=== PATIENT | male | born 1960 | race Caucasian/White ===

== ENCOUNTER 2017-04-10 22:10 | Inpatient (IN) | payer MEDICARE, MEDICAID ==
--- NOTE | 2017-04-11 00:11 | ER Document Report ---
ED Fall - General Mode of Arrival: Medic Information source: Patient TRAVEL OUTSIDE OF THE [place] IN LAST 30 DAYS: No - HPI Patient complains to provider of: Fall Occurred: This evening Where: Home Context: Lost balance, Fell from standing Associated symptoms: Dazed/confused, Difficulty walking Location of injury/pain: Neck Prehospital interventions: C-collar <DOTTIE RODRIGUEZ - Last Filed: 04/11/17 05:45> <ASHLEY HATHAWAY - Last Filed: 04/11/17 06:47> - General Chief Complaint: Fall Stated Complaint: DIZZINESS Time Seen by Provider: 04/10/17 23:57 Notes: 56 year old male with history of hepatitis C, insulin dependent diabetes mellitus and hypertension presents to the ED via EMS after suffering a fall early this evening. Patient states that he got up to walk from his couch to the kitchen when he suddenly felt dizzy and lost his balance. Patient fell to the ground but is unsure if he hit his head. Patient is complaining of neck pain and states that he "can't think right." Patient explains that he has been experiencing dizziness and loss of balance for the past week that got worse today with the fall. Patient is currently taking Bactrim secondary to multiple leg sores. EMS reports patient's dizziness is exacerbated with ambulation, fever of 101.1F , with a heart rate of 120. (DOTTIE RODRIGUEZ) - Related data Allergies/Adverse Reactions: No Known Allergies Allergy (Unverified 02/18/12 20:40) Past Medical History - General Information source: Patient - Social History Smoking Status: Current Every Day Smoker Frequency of alcohol use: Social Drug Abuse: None Family History: Reviewed & Not Pertinent - Past Medical History Cardiac Medical History: Reports: Hx Hypertension Denies: Hx Hypercholesterolemia Endocrine Medical History: Reports: Hx Diabetes Mellitus Type 2 - insulin dependent Renal/ Medical History: Reports: Hx Kidney Stones Musculoskeltal Medical History: Reports Hx Arthritis Infectious Medical History: Reports: Hx Hepatitis - C Past Surgical History: Reports: Hx Abdominal Surgery - lap band, Hx Gastric Bypass Surgery - lap band, Hx Orthopedic Surgery - knee, hip - Immunizations Hx Diphtheria, Pertussis, Tetanus Vaccination: Yes <DOTTIE RODRIGUEZ - Last Filed: 04/11/17 05:45> - Social History Cigarette use (# per day): Yes Chew tobacco use (# tins/day): No Smoking Education Provided: No Occupation: Interneer Lives with: Family Past Surgical History: Reports: Hx Orthopedic Surgery - knee, R hip replacement <ASHLEY HATHAWAY - Last Filed: 04/11/17 06:47> Review of Systems - Review of Systems Constitutional: No symptoms reported EENT: No symptoms reported Cardiovascular: See HPI, Dizziness Respiratory: No symptoms reported Gastrointestinal: No symptoms reported Genitourinary: No symptoms reported Male Genitourinary: No symptoms reported Musculoskeletal: See HPI, Neck pain Skin: No symptoms reported Hematologic/Lymphatic: No symptoms reported Neurological/Psychological: See HPI, Other - loss of balance -: Yes All other systems reviewed and negative <DOTTIE RODRIGUEZ - Last Filed: 04/11/17 05:45> Physical Exam - Vital signs Interpretation: Tachycardic, Febrile - General General appearance: Alert In distress: None - HEENT Head: Normocephalic, Atraumatic Eyes: Other - lateral gaze nystagmus. No: Normal Extraocular movements intact: Yes Pupils: PERRL Neck: Other - C-collar in place - Respiratory Respiratory status: No respiratory distress Breath sounds: Normal - Cardiovascular Rhythm: Regular, Tachycardia Heart sounds: Normal auscultation - Abdominal Inspection: Obese Distension: No distension Tenderness: Nontender - Back Back: Normal - Extremities General upper extremity: Normal inspection, Normal ROM General lower extremity: Normal inspection, Normal ROM - Neurological Neuro grossly intact: Yes Cognition: Confused - Psychological Associated symptoms: Normal affect, Normal mood - Skin Skin Temperature: Warm Skin Moisture: Dry Skin Color: Normal <DOTTIE RODRIGUEZ - Last Filed: 04/11/17 05:45> Course - Laboratory Result Diagrams: 04/11/17 00:12 04/11/17 00:12 <DOTTIE RODRIGUEZ - Last Filed: 04/11/17 05:45> - Laboratory Result Diagrams: 04/11/17 00:12 04/11/17 00:12 - Diagnostic Test Radiology reviewed: Image reviewed, Reports reviewed - CT scan of the brain shows chronic microvascular ischemic changes and atrophy with nothing acute. CT scan of the neck shows chronic arthritic changes with nothing acute. - Consults Dr. Logan Time consulted: 06:40 Consulted provider: will come to ER <ASHLEY HATHAWAY - Last Filed: 04/11/17 06:47> - Re-evaluation Re-evalutation: 04/11/17 05:39 The patient was given 50 mg of Antivert p.o. He also received 1 L of normal saline. He then slept for about 2 hours. On waking the patient, he states he thinks he feels somewhat better, he was allowed to stand up to see how his off- balance sensation was, and he almost fell forward. Give additional IV fluids and order an MRI of the brain for the morning. (ASHLEY HATHAWAY) - Vital Signs Vital signs: Temp Pulse Resp BP Pulse Ox 99.1 F 102 H 18 146/83 H 95 04/11/17 06:38 04/11/17 06:38 04/11/17 06:38 04/11/17 06:38 04/11/17 06:38 - Laboratory Laboratory results interpreted by me: 04/11/17 04/11/17 00:12 00:12 Carbon Dioxide 21 L BUN 25 H Glucose 167 H Creatine Kinase 49 L Urine Glucose (UA) 150 H Urine Blood SMALL H Urine Urobilinogen 2.0 H Discharge <DOTTIE RODRIUGEZ - Last Filed: 04/11/17 05:45> - Discharge Admitting Provider: Hospitalist Unit Admitted: IMCU <ASHLEY HATHAWAY - Last Filed: 04/11/17 06:47> - Discharge Clinical Impression: Balance problems, Dehydration, Confusion, Encephalopathy Condition: Fair Disposition: ADMITTED INPATIENT Scribe Attestation: 04/11/17 06:35 I personally performed the services described in the documentation, reviewed and edited the documentation which was dictated to the scribe in my presence, and it accurately records my words and actions. (ASHLEY HATHAWAY) Scribe Documentation - Scribe Written by Clint:: Clint Vickers, 04/11/2017 0012 acting as scribe for :: Santy <DOTTIE RODRIGUEZ - Last Filed: 04/11/17 05:45>
[2017-04-11] MEDS ORDERED: ACETAMINOPHEN 325 MG TABLET PO ONE ×2 (00:15→16:32)
[2017-04-11] MEDS ORDERED: MECLIZINE HCL 25 MG TABLET PO ONE (00:15)
[2017-04-11] MEDS ORDERED: NORMAL SALINE 1000 ML 1,000 ML IV ONE ×2 (00:15→04:16)
[2017-04-11 00:30] LABS: APPEARANCE,URINE CLEAR; BILIRUBIN,URINE NEGATIVE (NEGATIVE); CALCIUM OXALATE CRYSTALS,URINE MANY /HPF; GLUCOSE, URINE 150 mg/dL (NEGATIVE); KETONES,URINE NEGATIVE (NEGATIVE); LEUKOCYTE ESTERASE,URINE NEGATIVE (NEGATIVE); NITRITE,URINE NEGATIVE (NEGATIVE); PROTEIN,URINE NEGATIVE (NEGATIVE); URINE SPECIFIC GRAVITY 1.027
[2017-04-11 00:32] LABS: ABSOLUTE LYMPHOCYTES (AUTO) 0.7 10^3/uL (0.5-4.7); ABSOLUTE MONOCYTES (AUTO) 0.3 10^3/uL (0.1-1.4); ABSOLUTE NEUT (AUTO) 3.2 10^3/uL (1.7-8.2); BASOPHILS % (AUTO) 1.1 % (0-2); EOSINOPHILS % (AUTO) 0.4 % (0-6); HEMATOCRIT 47.1 % (37.9-51.0); HEMOGLOBIN 15.6 g/dL (13.5-17.0); HGB HCT DIFFERENCE -0.3; LYMPHOCYTES % (AUTO) 17.1 % (13-45); MEAN CORPUSCULAR HGB CONC 33.1 g/dL (32.0-36.0); MEAN CORPUSCULAR VOLUME 94 fl (80-97); MONOCYTES % (AUTO) 6.6 % (3-13); RED BLOOD COUNT 5.02 10^6/uL (4.35-5.55); RED CELL DISTRIBUTION WIDTH 13.5 % (11.5-14.0); SEGMENTED NEUTROPHILS % (AUTO) 74.8 % (42-78); WHITE BLOOD COUNT 4.3 10^3/uL (4.0-10.5)
--- NOTE | 2017-04-11 00:41 | RADIOLOGY REPORT (SQ) ---
EXAM DESCRIPTION: CT HEAD WITHOUT COMPLETED DATE/TIME: 04/11/2017 12:22 am REASON FOR STUDY: dizzy, syncope, hit head COMPARISON: CT head 02/18/2012. TECHNIQUE: Axial images acquired through the brain without intravenous contrast. Images reviewed wi th bone, brain and subdural windows. Images stored on PACS. All CT scanners at this facility use dose modulation, iterative reconstruction, and/or weight based d osing when appropriate to reduce radiation dose to as low as reasonably achievable (ALARA). [facility]: Dose Right [facility]: CareDose [facility]: Dose Right [facility]: Teradose 4D [facility]: [employer] RADIATION DOSE: 64.61 mGy. LIMITATIONS: None. FINDINGS: VENTRICLES: Mildly prominent. CEREBRUM: No mass effect. No hemorrhage. No midline shift. Areas of low density in the white matte r most likely due to chronic micro-vascular ischemic change. No evidence for acute territorial infar ction. CEREBELLUM: No hemorrhage. No alteration of density. No evidence for acute infarction. EXTRAAXIAL SPACES: Mild age-related involutional change. No fluid collections. ORBITS AND GLOBE: Symmetrical contour of the globes. CALVARIUM: No depressed fracture. PARANASAL SINUSES: No air-fluid level. SOFT TISSUES: No hematoma. IMPRESSION: No acute intracranial hemorrhage or depressed calvarial fracture. Chronic changes of at rophy and microvascular ischemia. TECHNICAL DOCUMENTATION: JOB ID: [id number] [facility] Quality ID # [id number]: Final reports with documentation of one or more dose reduction techniques (e.g., Au tomated exposure control, adjustment of the mA and/or kV according to patient size, use of iterative reconstruction technique) 2010 [employer]- All Rights Reserved
[2017-04-11 00:42] LABS: ALANINE AMINOTRANSFERASE 29 U/L (21-72); ALBUMIN 3.8 g/dL (3.5-5.0); ALKALINE PHOSPHATASE 62 U/L (38-126); ANION GAP 13 (5-19); ASPARTATE AMINO TRANSFERASE 21 U/L (17-59); BILIRUBIN,DIRECT 0.3 mg/dL (0.0-0.4); BILIRUBIN,TOTAL 0.4 mg/dL (0.2-1.3); BLOOD UREA NITROGEN 25 mg/dL (7-20); CALCIUM 8.8 mg/dL (8.4-10.2); CARBON DIOXIDE 21 mmol/L (22-30); CHLORIDE 104 mmol/L (98-107); CREATINE KINASE 49 U/L (55-170); CREATININE RESULT 1.05 mg/dL (0.52-1.25); GLUCOSE 167 mg/dL (75-110); MAGNESIUM 1.9 mg/dL (1.6-2.3); POTASSIUM 4.2 mmol/L (3.6-5.0); SODIUM 137.5 mmol/L (137-145); TOTAL PROTEIN 7.3 g/dL (6.3-8.2)
[2017-04-11 00:52] LABS: CREATINE KINASE MB 0.6 ng/mL (<4.55); TROPONIN I 0.017 ng/mL
--- NOTE | 2017-04-11 00:57 | RADIOLOGY REPORT (SQ) ---
EXAM DESCRIPTION: CT CERVICAL SPINE WITHOUT COMPLETED DATE/TIME: 04/11/2017 12:32 am REASON FOR STUDY: dizzy, syncope, hit head COMPARISON: None. TECHNIQUE: Axial images acquired through the cervical spine without intravenous contrast. Images re viewed with lung, soft tissue and bone windows. Reconstructed coronal and sagittal MPR images review ed. Images stored on PACS. All CT scanners at this facility use dose modulation, iterative reconstruction, and/or weight based d osing when appropriate to reduce radiation dose to as low as reasonably achievable (ALARA). [facility]: Dose Right [facility]: CareDose [facility]: Dose Right [facility]: Teradose 4D [facility]: [employer] RADIATION DOSE: 21.50 mGy. LIMITATIONS: None. FINDINGS: ALIGNMENT: Anatomic. MINERALIZATION: Normal. VERTEBRAL BODIES: No fractures or dislocation. DISCS: Degenerative disc disease and osteophytosis at C3-C4 and C5-C6. FACETS, LATERAL MASSES, POSTERIOR ELEMENTS: Facet arthropathy. No fractures. No dislocation. HARDWARE: None in the spine. VISUALIZED RIBS: No fractures. LUNG APICES AND SOFT TISSUES: No acute findings. IMPRESSION: No CT evidence for acute fracture in the cervical spine. Degenerative changes. TECHNICAL DOCUMENTATION: JOB ID: [id number]-64 Quality ID # [id number]: Final reports with documentation of one or more dose reduction techniques (e.g., Au tomated exposure control, adjustment of the mA and/or kV according to patient size, use of iterative reconstruction technique) 2010 [email or web address]- All Rights Reserved
[2017-04-11 06:56] LABS: ADD ON TESTING BLD IN LAB ACKNOWLEDGE
[2017-04-11] MEDS ORDERED: CYANOCOBALAMIN (VITAMIN B-12) INJ 1000 MCG/1 ML VIAL IM ONE (10:10)
[2017-04-11] MEDS ORDERED: NORMAL SALINE 1000 ML 1,000 ML with POTASSIUM CHLORIDE 20 MEQ, MAGNESIUM SULFATE 8 MEQ,... IV ONE ×5 (12:00)
[2017-04-11] MEDS: HEPARIN SOD (PORCINE) 5,000 UNIT/ML 1 ML SYRINGE SUBCUT SCH ×2 (14:02→22:47)
--- NOTE | 2017-04-11 15:39 | RADIOLOGY REPORT (SQ) ---
EXAM DESCRIPTION: MRI HEAD WITHOUT COMPLETED DATE/TIME: 04/11/2017 2:50 pm REASON FOR STUDY: dizzy, off balance COMPARISON: CT brain 04/11/2017, 02/18/2012 TECHNIQUE: Multiplanar imaging includes non-contrasted T1, T2, FLAIR, and diffusion with ADC map seq uences. Images stored on PACS. LIMITATIONS: Motion artifact on most pulse sequences FINDINGS: Motion artifact on most pulse sequences. On diffusion weighted series 4 image 10, punctate focus of altered diffusion in the right ashleigh is pre sent which could be tiny pontine acute infarct, nonhemorrhagic. Diffusion-weighted images show no large cerebellar or cerebral hemisphere acute ischemic change. FLAIR and T2 weighted images demonstrate moderate spotty white matter increased signal in the bitempo ral, biparietal, and bifrontal regions, and in the bilateral thalami which is likely small vessel is chemic change. A demyelinating process could not entirely be excluded. No gross mass effect or midline shift. Limited view of the orbits, paranasal sinuses, mastoid unrema rkable. IMPRESSION: Motion artifact. Question small lacunar infarct in the right ashleigh. Extensive chronic small vessel disease. Demyelinating disease could not entirely be excluded TECHNICAL DOCUMENTATION: JOB ID: [id number] [employer]- All Rights Reserved
[2017-04-11] MEDS ORDERED: DEXTROSE 50%-WATER 25 GM/50 ML DISP.SYRIN IV PRN ×2 (16:31)
[2017-04-11] MEDS ORDERED: DEXTROSE 40% GEL 15 GM TUBE PO PRN ×2 (16:31)
[2017-04-11] MEDS ORDERED: GLUCAGON,HUMAN RECOMB 1 MG INJ IM PRN (16:31)
[2017-04-11] MEDS ORDERED: ACETAMINOPHEN 325 MG TABLET PO PRN (16:32)
[2017-04-11] MEDS ORDERED: LORAZEPAM 1 MG TABLET PO ONE (16:34)
[2017-04-11] MEDS ORDERED: LORAZEPAM INJ 2 MG/1 ML VIAL IV PRN ×2 (16:34→21:33)
[2017-04-11 17:22] LABS: URINE BARBITURATES SCREEN NEGATIVE; URINE METHADONE SCREEN NEGATIVE; URINE OPIATES LOW NEGATIVE; URINE PHENCYCLIDINE SCREEN NEGATIVE
[2017-04-11] MEDS ORDERED: NICOTINE 21 MG/24 HR PATCH.TD24 TD PRN (18:01)
[2017-04-11] MEDS ORDERED: CLONIDINE HCL 0.1 MG TABLET ONE (18:43)
[2017-04-11] MEDS ORDERED: PIPERACILLIN/TAZOBACTAM 3.375 GM VIAL IV ONE (18:59)
--- NOTE | 2017-04-11 19:08 | HISTORY AND PHYSICAL E ---
History and Physical NAME: RUSS PA : 1960 AGE: 56Y ADMITTED: 04/11/2017 ROOM: 429 PRIMARY CARE PROVIDER: Elizabeth Chaudhari. CODE STATUS: FULL CODE. CHIEF COMPLAINT: "I cannot walk". HISTORY OF PRESENT ILLNESS: The patient is a 56-year-old male with a past medical history of hepatitis C. insulin-dependent diabetes, and cocaine use who is known to the hospitalist service. The patient presented to the Emergency Department with a chief complaint of having difficulty to walk. The patient apparently arrived via EMS after sustaining a fall earlier in the evening. According to the patient, he got up to walk from his couch to the kitchen. He suddenly felt dizzy, lost his balance, and fell to the ground. The patient did not think that he hit his head. The patient was complaining of neck pain upon arrival and said that he was confused. The patient does have underlying chronic pain as well. The patient explained that he had been experiencing dizziness as well as some loss of balance that had gotten worse. The patient had been taking Bactrim secondary to multiple leg sores. While in the Emergency Department, the patient was noted to have an increased dizziness and was subsequently referred to the hospitalist for admission and management. The patient had also received liter bolus of normal saline. The patient stated he felt better; however, he was unable to walk. The patient was given yet more fluids, and an MRI of the brain was ordered, and the patient was referred for admission. PAST MEDICAL HISTORY: Remarkable for: 1. Nephrolithiasis. 2. Diabetes mellitus type 2. 3. Hypertension. 4. Hepatitis C. 5. Diverticulosis with diverticulitis. 6. History of obesity. 7. Tobacco dependency. PAST SURGICAL HISTORY: 1. Cholecystectomy. 2. Lap band. 3. 17 various orthopedic procedures secondary to trauma. ALLERGIES: Include no known drug allergies. HOME MEDICATIONS: Include: 1. Harvoni 90/400 1 tablet p.o. daily. 2. Lisinopril 40 mg p.o. daily. 3. Avapro 300 mg p.o. daily. 4. Lantus 15 units subcutaneous daily. 5. Motrin 800 mg p.o. q.8 hours. 6. Lodine 400 mg p.o. q.12 hours. 7. Mycelex troches 10 mg p.o. t.i.d. 8. Bactrim double-strength 1 tablet p.o. daily. SOCIAL HISTORY: The patient currently resides at home. 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 Surrogate decision maker is Thor Roberts who may be reached at [phone] who also presents himself as the patient's [id number]. The patient does have a significant history of alcohol abuse. The patient also has a history of cocaine use which has been positive on previous and current admission toxicology screens. The patient has a 36 pack-year tobacco history. FAMILY MEDICAL HISTORY: The patient has multiple family members with renal failure which is suspicious for polycystic kidneys. Both parents were with diabetes. Also, claims that hypertension runs in his family. REVIEW OF SYSTEMS: CONSTITUTIONAL: The patient denies any loss of appetite. Admits to fevers, chills, dizziness, and weakness. INTEGUMENTARY: The patient denies any diaphoresis, rashing, bruising. The patient admits to ulcerations of his lower legs. HEENT: Denies any vision change, hearing loss, nasal drainage, sore throat. No headaches. CARDIOVASCULAR: Denies any dyspnea, chest pain, edema, heart palpitations. RESPIRATORY: Denies any cough, sputum production, or hemoptysis. GASTROINTESTINAL: Denies any nausea, vomiting, diarrhea, abdominal pain, blood, hematemesis, constipation, melena, hematochezia. No epigastric pain. GENITOURINARY: Denies any hematuria, pyuria, dysuria. MUSCULOSKELETAL: Denies any specific acute joint pains. Admits to chronic joint pain. NEUROLOGIC: Denies any seizures, tremors, loss of consciousness. HEMATOLOGIC: Denies any tamara bleeding, easy bruising. ENDOCRINE: Denies any recent weight changes. Denies any hyper- or hypoglycemia. PSYCHIATRIC: Denies suicide or homicide ideations. The rest of review of the other organ systems is negative. PHYSICAL EXAMINATION: GENERAL: On examination, the patient is a well-developed, disheveled, 56-year-old male who is awake, alert. He is oriented to person, place, time, and situation. He is verbal conversational, a little delayed, does not appear to be in any acute distress. VITAL SIGNS: Are as follows: Temperature is 99.1. Pulse 102. Respirations 18. Blood pressure is 146/83. Oxygen saturation is 95% on room air. SKIN: Warm and dry. No rashes. Not diaphoretic. BILATERAL LOWER EXTREMITIES: Have what appear to be ulcerations. HEENT: Pupils are equal, round, and reactive to light and accommodation. Conjunctivae are pale. Sclerae are not icteric. There are no mouth lesions. Tongue is midline. The neck is supple. The patient has poor dentition. No JVD. No palpable lymphadenopathy or thyromegaly. CARDIOVASCULAR: Heart is regular. There is no murmur or rub. CHEST: Clear, symmetrical, unlabored. ABDOMEN: Soft, nontender, nondistended. Bowel sounds are present. No palpable organomegaly. BACK: No CVA tenderness or sacral edema. EXTREMITIES: No clubbing, cyanosis, edema, or peripheral signs of embolization. +1 pedal pulses noted bilaterally. PSYCHIATRIC: Odd affect. DIAGNOSTICS: Lab values are as follows: Hematology on 04/11/2017: WBC of 4.3; hemoglobin is 15.6; hematocrit is 47.1; platelet count is 157,000. Chemistry obtained on 04/11/2017: Sodium is 137; potassium is 4.2; chloride is 104; carbon dioxide is 21; BUN is 25; creatinine; glucose 167. A1c is 5.9. Calcium is 8.8. Magnesium is 1.9. Bilirubin is 0.4; AST 21; ALT is 29; alkaline phosphatase 62. CK 49, CK-MB is 0.60. Troponin is 0.012. Total protein 7.3, albumin 3.8. IMPRESSION AND PLAN: 1. Ataxia. We are currently awaiting stat MRI. We will also add B12, ammonia levels and follow. The patient's cognition is much improved. 2. Cocaine abuse. We will avoid beta blockers and eap counselor the patient accordingly. 3. Hypertension. We will continue the patient's home medications. 4. Diabetes mellitus type 2. We will add sliding scale coverage, continue home basal insulin as the patient is taking p.o. 5. Hepatitis C. We will continue Harvoni for now. 6. Deep venous thrombosis prophylaxis. We will add subcutaneous heparin. 7. Tobacco dependency. Spent 3 minutes discussing smoking cessation education. The patient declines any pharmacological intervention at this time; however, we will add a nicotine patch. DISPOSITION: The patient is a FULL CODE. Pending patient's symptomatology and diagnostic findings, we will re-evaluate in the a.m. We will admit the patient to inpatient telemetry as the patient's estimated length of stay will surpass 2 midnights. TIME SPENT: Time spent on this admission including assessment, plan, physical examination, patient education, and review of previous records is 45 minutes. NEUROLOGIC: Cranial nerves II-XII are grossly intact. The patient does have appropriate coordination and equal strength, but at times, the patient does tense upper extremities or clamp down. ADDENDUM: The patient had been admitted earlier in the morning; however, this afternoon it appears the patient has spiked a fever. Plan on review of the patient's clinical assessment. It appears to me have cellulitis of the lower extremities. We will add blood, urine cultures and cover with broad-spectrum antibiotic coverage for now and follow. The patient has no clinical evidence of respiratory issues, no palpable ascites. DICTATING PHYSICIAN: YU JONES NP [id number] PHY#: [id number] ID: [id number] JOB#: [id number] ACCT: [id number] cc:WILLY VELÁSQUEZ > MTDJay
[2017-04-11] MEDS ORDERED: CLONIDINE HCL 0.1 MG TABLET PO ONE (19:45)
[2017-04-11] MEDS: PIPERACILLIN SODIUM/TAZOBACTAM 3.375 GM in NORMAL SALINE 100 ML IV SCH (19:49)
[2017-04-11] MEDS: LORAZEPAM INJ 2 MG/1 ML VIAL IV PRN (22:54)
[2017-04-12] MEDS: PIPERACILLIN SODIUM/TAZOBACTAM 3.375 GM in NORMAL SALINE 100 ML IV SCH ×3 (00:58→12:36)
[2017-04-12 05:21] LABS: ANION GAP 11 (5-19); BLOOD UREA NITROGEN 18 mg/dL (7-20); CALCIUM 8.7 mg/dL (8.4-10.2); CARBON DIOXIDE 22 mmol/L (22-30); CHLORIDE 102 mmol/L (98-107); CHOLESTEROL 163.77 mg/dL (0-200); CREATININE RESULT 1.11 mg/dL (0.52-1.25); Direct HDL 36 mg/dL (>40); GLUCOSE 122 mg/dL (75-110); MAGNESIUM 2.1 mg/dL (1.6-2.3); POTASSIUM 4.3 mmol/L (3.6-5.0); SODIUM 135.4 mmol/L (137-145); TRIGLYCERIDES 108 mg/dL (<150)
[2017-04-12 05:31] LABS: DIRECT LDL 81 mg/dL (<100)
[2017-04-12] MEDS: CLONIDINE HCL 0.1 MG TABLET PO SCH ×2 (05:47→12:14)
[2017-04-12] MEDS: HEPARIN SOD (PORCINE) 5,000 UNIT/ML 1 ML SYRINGE SUBCUT SCH ×2 (06:15→12:37)
[2017-04-12] MEDS ORDERED: ACETAMINOPHEN 325 MG TABLET PO PRN (07:37)
[2017-04-12] MEDS ORDERED: NICOTINE 21 MG/24 HR PATCH.TD24 TD PRN (07:39)
[2017-04-12 08:36] LABS: ARTERIAL BLOOD BASE EXCESS -1.6 mmol/L; ARTERIAL BLOOD O2 SATURATION 94.4 % (94-98)
--- NOTE | 2017-04-12 09:05 | RADIOLOGY REPORT (SQ) ---
EXAM DESCRIPTION: CHEST SINGLE VIEW COMPLETED DATE/TIME: 04/12/2017 8:56 am REASON FOR STUDY: tachypnea COMPARISON: 01/27/2013 NUMBER OF VIEWS: One view. TECHNIQUE: Single frontal radiographic view of the chest acquired. LIMITATIONS: None. FINDINGS: LUNGS AND PLEURA: No opacities, masses or pneumothorax. No pleural effusion. MEDIASTINUM AND HILAR STRUCTURES: No masses. Contour normal. HEART AND VASCULAR STRUCTURES: Heart normal in size. Normal vasculature. BONES: No acute findings. HARDWARE: None in the chest. OTHER: No other significant finding. IMPRESSION: NO SIGNIFICANT RADIOGRAPHIC FINDING IN THE CHEST. TECHNICAL DOCUMENTATION: JOB ID: [id number] [employer]- All Rights Reserved
[2017-04-12] MEDS ORDERED: SOFOSBUVIR PO SCH (10:00)
[2017-04-12] MEDS ORDERED: INSULIN GLARGINE,HUM.REC.ANLOG 300 UNIT/3 ML INSULN.PEN SUBCUT SCH (10:00)
[2017-04-12] MEDS ORDERED: LEDIPASVIR PO SCH (10:00)
[2017-04-12] MEDS ORDERED: ASPIRIN 300 MG SUPP, RECTAL PR SCH (10:00)
--- NOTE | 2017-04-12 10:34 | RADIOLOGY REPORT (SQ) ---
EXAM DESCRIPTION: CT HEAD WITHOUT COMPLETED DATE/TIME: 04/12/2017 10:17 am REASON FOR STUDY: Change in mental status COMPARISON: None. TECHNIQUE: Axial images acquired through the brain without intravenous contrast. Images reviewed wi th bone, brain and subdural windows. Images stored on PACS. All CT scanners at this facility use dose modulation, iterative reconstruction, and/or weight based d osing when appropriate to reduce radiation dose to as low as reasonably achievable (ALARA). [facility]: Dose Right [facility]: CareDose [facility]: Dose Right [facility]: Teradose 4D [facility]: [employer] RADIATION DOSE: 48.95 mGy. LIMITATIONS: None. FINDINGS: VENTRICLES: Normal size and contour. CEREBRUM: No masses. No hemorrhage. No midline shift. Normal alvarado/white matter differentiation. N o evidence for acute infarction. CEREBELLUM: No masses. No hemorrhage. No alteration of density. No evidence for acute infarction. There are tears in decreased attenuation in the posterior fossa, in the midline, and on the left. T he 1 on the left is suggestive of an arachnoid cyst. The midline may merely represent a giant cister na magna. EXTRAAXIAL SPACES: No fluid collections. No masses. ORBITS AND GLOBE: No intra- or extraconal masses. Normal contour of globe without masses. CALVARIUM: No fracture. PARANASAL SINUSES: No fluid or mucosal thickening. SOFT TISSUES: There is ectasia of the right vertebral artery seen best on image 8 series 2. OTHER: The external auditory canals are narrow. Is there history of chronic otitis externa? IMPRESSION: 1. There is no acute intracranial pathology. 2. 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 TECHNICAL DOCUMENTATION: JOB ID: [id number] Quality ID # [id number]: Final reports with documentation of one or more dose reduction techniques (e.g., Au tomated exposure control, adjustment of the mA and/or kV according to patient size, use of iterative reconstruction technique) 2010 [employer]- All Rights Reserved
[2017-04-12 11:14] LABS: PROTHROMBIN TIME 14.4 SEC (11.4-15.4)
[2017-04-12] MEDS: LORAZEPAM INJ 2 MG/1 ML VIAL IV PRN ×5 (11:56→22:52)
[2017-04-12] MEDS ORDERED: NORMAL SALINE 1000 ML 1,000 ML IV PRN (11:58)
[2017-04-12] MEDS: LOSARTAN POTASSIUM 50 MG TABLET PO SCH (12:14)
[2017-04-12] MEDS ORDERED: CEFTRIAXONE 2 GM/D5W RTU 50 ML IV SCH (13:00)
[2017-04-12] MEDS ORDERED: VANCOMYCIN HCL 0 MG in DEXTROSE 5%-WATER 250 ML IV NR (13:00)
[2017-04-12] MEDS ORDERED: ACETAMINOPHEN 650 MG SUPP.RECT PR ONE (13:30)
[2017-04-12 13:37] LABS: ARTERIAL BLOOD BASE EXCESS -2.3 mmol/L; ARTERIAL BLOOD O2 SATURATION 97.6 % (94-98)
--- NOTE | 2017-04-12 14:15 | RADIOLOGY REPORT (SQ) ---
EXAM DESCRIPTION: CTA NECK COMPLETED DATE/TIME: 04/12/2017 1:46 pm REASON FOR STUDY: Acute vertigo, AMS, follow-up CT COMPARISON: CT brain 04/12/2017, 04/11/2017 MRI brain 04/11/2017 TECHNIQUE: Axial dynamic scanning technique with dynamic contrast enhancement through the extra-bridge crane operator nial carotid and vertebral arteries. Multiplanar reconstruction. 3-D MIPS and Volume-rendered imag es acquired at the workstation and saved to PACS. Images are reviewed in soft tissue, bone, lung w indows. All CT scanners at this facility use dose modulation, iterative reconstruction, and/or weight based d osing when appropriate to reduce radiation dose to as low as reasonably achievable (ALARA). [facility]: Dose Right [facility]: CareDose [facility]: Dose Right [facility]: Teradose 4D [facility]: [employer] CONTRAST TYPE AND DOSE: 80 mL Isovue 370- low osmolar. RENAL FUNCTION: Creatinine 1.1 LIMITATIONS: None. FINDINGS: AORTIC ARCH: Normal three-vessel origin. Bilateral subclavian arteries are patent. No d issection. RIGHT CAROTIDS: Patent common, internal and external carotid arteries without suggestion of significa nt stenosis or irregular plaque. No dissection. RIGHT VERTEBRAL: Patent. No dissection. LEFT CAROTIDS: Patent common, internal and external carotid arteries without suggestion of significan t stenosis or irregular plaque. No dissection. LEFT VERTEBRAL: Patent. No dissection. OTHER: Neck soft tissues are unremarkable. Lung apices are clear. Orbits, paranasal sinuses unremar kable. OTHER: 3-D reconstructions confirm findings. IMPRESSION: NORMAL CTA OF THE EXTRA-CRANIAL CAROTID AND VERTEBRAL ARTERIES. COMMENT: Quality ID #[id number]: Measurements of distal internal carotid diameter were used as the denomina tor for stenosis measurement. TECHNICAL DOCUMENTATION: JOB ID: [id number] Quality ID # [id number]: Final reports with documentation of one or more dose reduction techniques (e.g., Au tomated exposure control, adjustment of the mA and/or kV according to patient size, use of iterative reconstruction technique) 2010 [employer]- All Rights Reserved
[2017-04-12] MEDS: AMPICILLIN SODIUM/SULBACTAM NA 3 GM in NORMAL SALINE 100 ML IV SCH ×2 (14:46→21:25)
[2017-04-12] MEDS: ACYCLOVIR SODIUM 750 MG in NORMAL SALINE 250 ML IV SCH ×2 (14:46→22:22)
--- NOTE | 2017-04-12 14:48 | RADIOLOGY REPORT (SQ) ---
EXAM DESCRIPTION: LUMBAR PUNCTURE; FLUORO/CV PLACEMENT COMPLETED DATE/TIME: 04/12/2017 2:28 pm REASON FOR STUDY: Fever, AMS; AMS COMPARISON: None. FLUOROSCOPY TIME: 15 SECONDS 2 digital radiographic images saved to PACS. TECHNIQUE: Fluoroscopic guided lumbar puncture. LIMITATIONS: Combative patient PROCEDURE: After written consent and assessment were obtained, the patient was brought into the fluo roscopy room and placed prone on the table. The patient's lower back was prepped in a sterile fashio n and an entry site was selected under live fluoroscopic guidance. The entry site was anesthetized wi th 4 mL of 1% lidocaine. A 22 gauge spinal gauge needle was advanced through the skin and into the th ecal sac at the right paracentral L2-3 level. After approximately 4 ml was drained, the needle was r emoved and a sterile bandage was placed of the site. Specimens were sent to the lab for testing. A fluoroscopic spot image was saved to PACS confirming level access. FINDINGS: Clear CSF normal opening pressure less than 15 cm of water. 4 mL was collected and sent f or testing as per hospitalist physicians IMPRESSION: Lumbar puncture under fluoroscopy. No immediate complication. COMMENT: Patient medication list reviewed: Yes- Quality ID# 130:Eligible professional attests to doc umenting in the medical record they obtained, updated, or reviewed the patient's current medications. . Quality ID 145: Final reports for procedures using fluoroscopy that document radiation exposure fabiana christiano, or exposure time and number of fluorographic images (if radiation exposure indices are not avail able) TECHNICAL DOCUMENTATION: JOB ID: [id number] [employer]- All Rights Reserved
[2017-04-12] MEDS ORDERED: VANCOMYCIN HCL 1,250 MG in DEXTROSE 5%-WATER 250 ML IV ONE (15:00)
[2017-04-12 15:17] LABS: GLUCOSE,CSF 70 mg/dL (40-70)
[2017-04-12 15:19] LABS: APPEARANCE ALL TUBES CLEAR; RBC AVERAGE 10.5; RBC DILUENT USED NONE USED; RBC DILUTION FACTOR 1; RBC SIDE 1 11; RBC SIDE 2 10; TOTAL RBC SQUARES COUNTED 225; WHITE BLOOD CELL,CSF 2 /uL (0-5)
[2017-04-12 16:01] LABS: ALANINE AMINOTRANSFERASE 82 U/L (21-72); ALBUMIN 3.4 g/dL (3.5-5.0); ALKALINE PHOSPHATASE 51 U/L (38-126); ANION GAP 11 (5-19); ASPARTATE AMINO TRANSFERASE 87 U/L (17-59); BILIRUBIN,DIRECT 0.4 mg/dL (0.0-0.4); BILIRUBIN,TOTAL 0.6 mg/dL (0.2-1.3); BLOOD UREA NITROGEN 22 mg/dL (7-20); CALCIUM 8.1 mg/dL (8.4-10.2); CARBON DIOXIDE 20 mmol/L (22-30); CHLORIDE 104 mmol/L (98-107); CREATININE RESULT 1.06 mg/dL (0.52-1.25); GLUCOSE 127 mg/dL (75-110); MAGNESIUM 2.1 mg/dL (1.6-2.3); SODIUM 134.5 mmol/L (137-145); TOTAL PROTEIN 7.1 g/dL (6.3-8.2)
[2017-04-12 16:26] LABS: ABSOLUTE LYMPHOCYTES (AUTO) 0.3 10^3/uL (0.5-4.7); ABSOLUTE MONOCYTES (AUTO) 0.1 10^3/uL (0.1-1.4); ABSOLUTE NEUT (AUTO) 2.5 10^3/uL (1.7-8.2); BASOPHILS % (AUTO) 0.9 % (0-2); EOSINOPHILS % (AUTO) 0.1 % (0-6); HEMATOCRIT 47.4 % (37.9-51.0); HGB HCT DIFFERENCE 0.6; MEAN CORPUSCULAR HGB CONC 33.8 g/dL (32.0-36.0); MEAN CORPUSCULAR VOLUME 92 fl (80-97); MONOCYTES % (AUTO) 4.8 % (3-13); RED BLOOD COUNT 5.16 10^6/uL (4.35-5.55); RED CELL DISTRIBUTION WIDTH 13.7 % (11.5-14.0); SEGMENTED NEUTROPHILS % (AUTO) 83.2 % (42-78)
--- NOTE | 2017-04-12 17:12 | XCELERA REPORT ---
[address] [address] Transthoracic Echocardiogram Report Name: RUSS PA Age: 56 yrs Gender: Male : 1960 Patient Status: Inpatient Patient Location: ICU\S\605\S\A Study Date: 04/12/2017 02:51 PM Height: 76 in Weight: 259 lb BSA: 2.5 m2 Procedure: A two-dimensional transthoracic echocardiogram with color flow and Doppler was performed. Study Quality: Technically suboptimal. The study was technically difficult with many images being suboptimal in quality. Reason For Study: CHEST PAIN / DYSPNEA History: CHEST PAIN / DYSPNEA. Ordering Physician: YU JONES Performed By: Fani Cat Interpretation Summary The left ventricle is grossly normal size. Left ventricular systolic function is normal. LV EF is > than60% Doppler measurements suggest impaired left ventricular relaxation, which is associated with grade I/IV or mild diastolic dysfunction The left ventricular wall motion is normal. There is no thrombus. There is no evidence of mitral valve prolapse. There is no mitral valve stenosis. There is no aortic valve stenosis There is no LVOT obstruction. No aortic regurgitation is present. There is no tricuspid stenosis. Probably trace TR.Unable to calculate RVSP due to insufficient TR jet There is no pericardial effusion. MMode/2D Measurements \T\ Calculations RVDd: 3.4 cm LVIDd: 3.8 cm FS: 33.5 % Ao root diam: 3.3 cm IVSd: 1.1 cm LVIDs: 2.5 cm EDV(Teich): 60.1 ml LVPWd: 1.1 cm ESV(Teich): 22.2 ml Ao root area: 8.6 cm2 EF(Teich): 63.0 % LA dimension: 3.0 cm Doppler Measurements \T\ Calculations MV E max carlton: MV P1/2t max carlton: Ao V2 max: LV V1 max P.8 cm/sec 56.8 cm/sec 119.0 cm/sec 2.9 mmHg MV A max carlton: MV P1/2t: 58.8 msec Ao max PG: LV V1 max: 91.3 cm/sec 5.7 mmHg 85.4 cm/sec MV E/A: 0.62 MVA(P1/2t): 3.7 cm2 MV dec slope: 282.9 cm/sec2 MV dec time: 0.20 sec PA V2 max: 82.5 cm/sec PA max P.7 mmHg Left Ventricle The left ventricle is grossly normal size. There is normal left ventricular wall thickness. Left ventricular systolic function is normal. LV EF is > than60%. Doppler measurements suggest impaired left ventricular relaxation, which is associated with grade I/IV or mild diastolic dysfunction. The left ventricular wall motion is normal. There is no thrombus. There is no ventricular septal defect visualized. Right Ventricle The right ventricle is not well visualized secondary to technical limitations. Atria Right atrium not well visualized secondary to technical limitations. The left atrial size is normal. The interatrial septum is intact with no evidence for an atrial septal defect. Mitral Valve There is no evidence of mitral valve prolapse. There is no vegetation seen on the mitral valve. There is no mitral valve stenosis. There is no mitral regurgitation noted. Aortic Valve There is no aortic valve stenosis. There is no LVOT obstruction. No aortic regurgitation is present. Tricuspid Valve There is no tricuspid stenosis. Probably trace TR.Unable to calculate RVSP due to insufficient TR jet. Pulmonic Valve The pulmonic valve is not well visualized. Great Vessels The aortic root is not well visualized. Effusions There is no pericardial effusion. : YU JONES > Fransisca Arrieta
[2017-04-12] MEDS: CEFTRIAXONE 2 GM/D5W RTU 2 GM/50 ML RTUPB IV SCH (17:42)
[2017-04-12] MEDS ORDERED: NORMAL SALINE 1000 ML 1,000 ML with POTASSIUM CHLORIDE 20 MEQ, MAGNESIUM SULFATE 8 MEQ,... IV SCH ×5 (18:00)
--- NOTE | 2017-04-12 19:09 | PROGRESS NOTE E ---
Progress Note NAME: RUSS PA : 1960 AGE: 56Y DATE: 04/12/2017 ROOM: 605 SUBJECTIVE: I have seen the patient couple of times on rounds today. I was notified by the nursing staff in the morning that the patient was tachypneic and obtunded. Upon my assessment of the patient, he was minimally responsive and was shallow breathing. ABG was obtained, pretty consistent with respiratory alkalosis, very similar to the patient's previous gases. However, his pO2 was 65 and placed him on a nonrebreather. Given the patient's status, he was transferred to the ICU for closer management. The patient had been afebrile throughout the evening; however, he re-spiked the temperature at around 11 a.m. of 101.1. The patient's blood cultures revealed no growth. Urine culture revealed no growth and with no obvious source, the patient underwent an LP and was placed on quad therapy for possible meningitis. RPR was sent. The patient did have an MRI that was extremely ambiguous given motion artifact. However, it does appear that the patient has significant cerebrovascular disease and therefore underwent a head CTA given that he also complained of vertigo. CTA imaging of the neck was unremarkable as well. The patient was no longer obtunded. At this time, he was grabbing at staff, combative and was pulling at his mask. The patient was increasingly agitated. According to the patient's sister, who is also a physician faculty research assistant and the patient's primary care provider, the patient drinks "daily." The patient had evasive of all these questions in the past. However, the patient's alcohol level was negative on presentation. Therefore, I have a high suspicion of acute alcohol withdrawal as DTs; however, it does not explain his fever to date. REVIEW OF SYSTEMS: A full review of systems cannot be appreciated given the patient's mental status. MEDICATIONS: Medications have been reviewed. OBJECTIVE: GENERAL: The patient is a 56-year-old male who is only minimally responsive. He is obtunded and does appear to be in some mild respiratory distress. VITAL SIGNS: Temperature is 99.4, pulse 104, respirations 20, blood pressure is 116/79, oxygen saturation is 97% on nonrebreather. SKIN: Warm and dry. No rashes. He is not diaphoretic. HEENT: Pupils equal, round and reactive to light and accommodation. Conjunctivae are pink. There is no JVD. CARDIOVASCULAR: Heart is regular. There is no murmur or rub. CHEST: Clear, symmetrical, unlabored. ABDOMEN: Soft, nontender, nondistended. Bowel sounds are present. BACK: No CVA tenderness, or sacral edema. EXTREMITIES: The patient does have cellulitic areas of the legs. The patient does have good pulses. PSYCHIATRIC: Unable to fully assess. DIAGNOSTICS: Lab values are as follows. Hematology obtained on 04/11/2017: WBCs 4.3, hemoglobin 16.6, hematocrit 47.1, and platelet count is 159,000. Chemistry obtained on 04/12/2017: Sodium is 135, potassium 4.3, chloride is 102, carbon dioxide 32, BUN 11, creatinine 1.11, calcium is 8.7, magnesium is 2.1, triglycerides 108, cholesterol is 163, LDL is 81, VLDL 22, HDL 36. IMPRESSION AND PLAN: 1 INFECTIOUS STATE, UNCERTAIN OF EXACT ETIOLOGY. We will approach this time until LP has been obtained as meningitis. The patient has no obvious other source of infection at this time. We will continue aggressive measures and follow. We will repeat CBC this afternoon and obtain lactic acid level. 2. METABOLIC ENCEPHALOPATHY, POSSIBLY SECONDARY TO THE ABOVE. However, I have a high suspicion for delirium tremens given that the patient is a daily drinker and was hyponatremic, B12 deficient as well. We will continue to self-limit B vitamins and follow. 3. ALCOHOL-DEPENDENCY. I have a high suspicion of this once again. We will give him another banana bag today and follow. 4. ATAXIA, MULTIFOCAL and most likely due to B12 deficiency as well as his current state CTA is not remarkable at this time. 5. CEREBROVASCULAR DISEASE. The patient had a small area of possible infarction on MRI. However, this was not definitive given significant motion artifact. This was proceeded as such with aspirin therapy, statin and so forth. We will defer carotids given CTA of the neck. We will obtain echocardiogram just given the patient's uncertain course at this time. 6. COCAINE ABUSE. The patient is a daily crack user. We will continue supportive management. 7. DIABETES MELLITUS TYPE 2. Continue sliding scale coverage. We will defer basal dose for now. 8. HEPATITIS C. The patient had been receiving Harvoni. We will hold this for now. 9. Deep vein thrombosis. We will resume subcu heparin after LP. 10. HYPERTENSION. We will allow permissive hypertension for now. 11. TOBACCO DEPENDENCY. We will continue p.r.n. nicotine patch. DISPOSITION: The patient is a FULL CODE. Pending patient's symptomatology and diagnostic findings, will re-evaluate as needed. The patient has been transferred to ICU. We will once again meet with the patient's family. Time spent on this critical care visit, including assessment/plan, physical examination, attempted patient education, discussion with the patient's family, review of records is 60 minutes. DICTATING PHYSICIAN: YU JONES NP [id number] PHY#: [id number] ID: [id number] JOB#: [id number] ACCT: [id number] cc: >
[2017-04-12 19:32] LABS: FIBRINOGEN 375 mg/dL (209-497); PROTHROMBIN TIME 14.1 SEC (11.4-15.4)
[2017-04-12 19:33] LABS: PARTIAL THROMBOPLASTIN TIME 36.6 SEC (23.5-35.8)
--- NOTE | 2017-04-12 20:30 | RADIOLOGY REPORT (SQ) ---
EXAM DESCRIPTION: NM LUNG PERFUSION SCAN COMPLETED DATE/TIME: 04/12/2017 8:20 pm REASON FOR STUDY: tachypnea, +Ddimer COMPARISON: None. RADIONUCLIDE AND DOSE: 4.78 millicuries TC-99m MAA The route of agent administration: Intravenous TECHNIQUE: Eight views of the lungs acquired following injection of MAA. LIMITATIONS: None. FINDINGS: PERFUSION: Perfusion images with normal homogenous activity and no wedge-shaped or segment al defects. OTHER: No other significant finding. IMPRESSION: NORMAL PERFUSION LUNG SCAN. TECHNICAL DOCUMENTATION: JOB ID: [id number] [employer]- All Rights Reserved
--- NOTE | 2017-04-12 21:10 | RADIOLOGY REPORT (SQ) ---
EXAM DESCRIPTION: CT CHEST WITHOUT COMPLETED DATE/TIME: 04/12/2017 8:32 pm REASON FOR STUDY: fever,AMS COMPARISON: None. TECHNIQUE: CT scan performed of the chest without intravenous contrast. Images reviewed with lung, soft tissue and bone windows. Reconstructed coronal and sagittal MPR images reviewed. All images st ored on PACS. All CT scanners at this facility use dose modulation, iterative reconstruction, and/or weight based d osing when appropriate to reduce radiation dose to as low as reasonably achievable (ALARA). [facility]: Dose Right [facility]: CareDose [facility]: Dose Right [facility]: Teradose 4D [facility]: [employer] RADIATION DOSE: 10.00 mGy. LIMITATIONS: No technical limitations. FINDINGS: LUNGS AND PLEURA: No masses, infiltrates, pneumothorax. No pleural effusions. Linear den sities are identified in the lung bases which could represent atelectatic changes or scarring. Calci fied granuloma is identified in the posterior sulcus on the left. HILAR AND MEDIASTINAL STRUCTURES: No identified masses or abnormal nodes. No obvious aneurysm. HEART AND VASCULAR STRUCTURES: No aneurysm. No pericardial effusion. UPPER ABDOMEN: See results under abdominal CT scan THYROID AND OTHER SOFT TISSUES: No masses. No adenopathy. BONES: No significant finding. HARDWARE: None in the chest. OTHER: No other significant findings. IMPRESSION: Linear densities are identified at the lung bases which could represent atelectatic garrison ges or scarring. Calcified granuloma in the posterior sulcus on the left. Other findings as noted sun falcon TECHNICAL DOCUMENTATION: JOB ID: [id number] Quality ID # [id number]: Final reports with documentation of one or more dose reduction techniques (e.g., Au tomated exposure control, adjustment of the mA and/or kV according to patient size, use of iterative reconstruction technique) 2010 [employer]- All Rights Reserved
[2017-04-12] MEDS: ACETAMINOPHEN 650 MG SUPP.RECT PR PRN (22:22)
[2017-04-12 22:26] LABS: ADD HIVPANEL? NO; HIV (1 AND 2) ANTIBODY NEGATIVE (NEGATIVE)
[2017-04-12] MEDS: VANCOMYCIN HCL 1,250 MG in DEXTROSE 5%-WATER 250 ML IV SCH (22:34)
--- NOTE | 2017-04-13 00:48 | RADIOLOGY REPORT (SQ) ---
EXAM DESCRIPTION: CT ABD/PELVIS NO ORAL OR IV COMPLETED DATE/TIME: 04/12/2017 8:33 pm REASON FOR STUDY: fever,AMS COMPARISON: None. TECHNIQUE: CT scan of the abdomen and pelvis performed without intravenous or oral contrast. Images reviewed with lung, soft tissue, and bone windows. Reconstructed coronal and sagittal MPR images revi ewed. All images stored on PACS. All CT scanners at this facility use dose modulation, iterative reconstruction, and/or weight based d osing when appropriate to reduce radiation dose to as low as reasonably achievable (ALARA). [facility]: Dose Right [facility]: CareDose [facility]: Dose Right [facility]: Teradose 4D [facility]: [employer] RADIATION DOSE: 10.62mGy. LIMITATIONS: Mild streak -motion artifact. FINDINGS: Chest: Small atelectasis or scar bilateral lower lobes and 0.9 cm calcified granuloma of t he left lower lobe. Mild nonspecific pretracheal lymphadenopathy measures 1.8 x 0.9 cm, image 19 of series 3. Small coronary arterial calcification. NON-CONTRASTED LIVER, SPLEEN, ADRENALS: Evaluation limited by lack of IV contrast. No identified sign ificant masses. PANCREAS: No masses. No peripancreatic inflammatory changes. GALLBLADDER: Surgically absent. RIGHT KIDNEY AND URETER: No suspicious masses. Assessment limited by lack of IV contrast. No signif icant calcifications. No hydronephrosis or hydroureter. LEFT KIDNEY AND URETER: No suspicious masses. Assessment limited by lack of IV contrast. No signifi cant calcifications. No hydronephrosis or hydroureter. AORTA AND RETROPERITONEUM: No aneurysm. No retroperitoneal masses or adenopathy. BOWEL AND PERITONEAL CAVITY: Extensive moderate sized diverticulosis of the sigmoid colon. Gastric b and. APPENDIX: No evidence of appendicitis. PELVIS, BLADDER, AND ABDOMINAL WALL:No abnormal masses. No free fluid. Bladder normal. Mcmullen bulb. BONES: Right femoral head arthroplasty. Small disc bulge. OTHER: No other significant finding. IMPRESSION: No acute findings. TECHNICAL DOCUMENTATION: JOB ID: [id number] Quality ID # [id number]: Final reports with documentation of one or more dose reduction techniques (e.g., Au tomated exposure control, adjustment of the mA and/or kV according to patient size, use of iterative reconstruction technique) 2010 [employer]- All Rights Reserved
[2017-04-13] MEDS: LORAZEPAM INJ 2 MG/1 ML VIAL IV PRN ×4 (01:50→21:47)
[2017-04-13] MEDS: AMPICILLIN SODIUM/SULBACTAM NA 3 GM in NORMAL SALINE 100 ML IV SCH ×4 (02:06→20:01)
[2017-04-13] MEDS: CEFTRIAXONE 2 GM/D5W RTU 2 GM/50 ML RTUPB IV SCH ×2 (05:00→18:03)
[2017-04-13 05:02] LABS: ALANINE AMINOTRANSFERASE 89 U/L (21-72); ALBUMIN 3.3 g/dL (3.5-5.0); ALKALINE PHOSPHATASE 49 U/L (38-126); ANION GAP 7 (5-19); ASPARTATE AMINO TRANSFERASE 100 U/L (17-59); BILIRUBIN,DIRECT 0.5 mg/dL (0.0-0.4); BILIRUBIN,TOTAL 0.7 mg/dL (0.2-1.3); BLOOD UREA NITROGEN 23 mg/dL (7-20); CALCIUM 8.3 mg/dL (8.4-10.2); CARBON DIOXIDE 23 mmol/L (22-30); CHLORIDE 108 mmol/L (98-107); CREATININE RESULT 0.93 mg/dL (0.52-1.25); GLUCOSE 89 mg/dL (75-110); MAGNESIUM 2.2 mg/dL (1.6-2.3); POTASSIUM 4.6 mmol/L (3.6-5.0); SODIUM 138.1 mmol/L (137-145); TOTAL PROTEIN 6.9 g/dL (6.3-8.2)
[2017-04-13] MEDS: ACYCLOVIR SODIUM 750 MG in NORMAL SALINE 250 ML IV SCH ×3 (05:30→21:46)
[2017-04-13 06:23] LABS: ABSOLUTE LYMPHOCYTES (AUTO) 0.7 10^3/uL (0.5-4.7); ABSOLUTE MONOCYTES (AUTO) 0.4 10^3/uL (0.1-1.4); ABSOLUTE NEUT (AUTO) 2.2 10^3/uL (1.7-8.2); BASOPHILS % (AUTO) 1.1 % (0-2); EOSINOPHILS % (AUTO) 0.2 % (0-6); HEMATOCRIT 47.8 % (37.9-51.0); HEMOGLOBIN 15.5 g/dL (13.5-17.0); HGB HCT DIFFERENCE -1.3; LYMPHOCYTES % (AUTO) 20.4 % (13-45); MEAN CORPUSCULAR HEMOGLOBIN 30.7 pg (27.0-33.4); MEAN CORPUSCULAR HGB CONC 32.5 g/dL (32.0-36.0); MEAN CORPUSCULAR VOLUME 94 fl (80-97); MONOCYTES % (AUTO) 11.3 % (3-13); RED BLOOD COUNT 5.07 10^6/uL (4.35-5.55); RED CELL DISTRIBUTION WIDTH 13.8 % (11.5-14.0); WHITE BLOOD COUNT 3.3 10^3/uL (4.0-10.5)
[2017-04-13] MEDS: VANCOMYCIN HCL 1,250 MG in DEXTROSE 5%-WATER 250 ML IV SCH ×3 (06:55→21:45)
[2017-04-13] MEDS: ACETAMINOPHEN 650 MG SUPP.RECT PR PRN (08:01)
[2017-04-13 08:45] LABS: ARTERIAL BLOOD BASE EXCESS -2.2 mmol/L; ARTERIAL BLOOD O2 SATURATION 99.3 % (94-98)
[2017-04-13 09:12] LABS: FIBRINOGEN 309 mg/dL (209-497); PARTIAL THROMBOPLASTIN TIME 34.2 SEC (23.5-35.8); PROTHROMBIN TIME 13.9 SEC (11.4-15.4)
[2017-04-13] MEDS ORDERED: FUROSEMIDE INJ/PF 40 MG/4 ML SDV ONE (09:16)
--- NOTE | 2017-04-13 09:22 | RADIOLOGY REPORT (SQ) ---
EXAM DESCRIPTION: CHEST SINGLE VIEW COMPLETED DATE/TIME: 04/13/2017 9:09 am REASON FOR STUDY: dyspnea COMPARISON: 04/12/2017 EXAM PARAMETERS: NUMBER OF VIEWS: One view. TECHNIQUE: Single frontal radiographic view of the chest acquired. RADIATION DOSE: NA LIMITATIONS: None. FINDINGS: LUNGS AND PLEURA: Linear density is identified in the right mid lung field which could rep resent atelectatic changes or could represent a small amount of fluid in the minor fissure. Some min imal linear densities are identified in the lung bases which were identified on the recent abdominal CT scan. MEDIASTINUM AND HILAR STRUCTURES: No masses. Contour normal. HEART AND VASCULAR STRUCTURES: Heart normal in size. Normal vasculature. BONES: No acute findings. HARDWARE: None in the chest. OTHER: No other significant finding. IMPRESSION: Linear density in the right mid lung field as noted above which could represent atelecta tic changes or could represent a small amount of fluid in the minor fissure. Some minimal linear den sities are identified in the lung bases which were identified on recent abdominal CT scan. Other fin dings as noted above TECHNICAL DOCUMENTATION: JOB ID: [id number]
[2017-04-13] MEDS: LOSARTAN POTASSIUM 50 MG TABLET PO SCH (09:25)
[2017-04-13] MEDS: HALOPERIDOL LACTATE INJ 5 MG/1 ML VIAL IV PRN ×2 (10:00→19:43)
[2017-04-13] MEDS ORDERED: FUROSEMIDE INJ/PF 20 MG/2 ML SDV IV ONE (10:00)
[2017-04-13] MEDS ORDERED: DIAZEPAM 5 MG TABLET PO SCH (10:00)
[2017-04-13 10:06] LABS: H. INFLUENZAE TYPE B AG NEGATIVE (NEGATIVE); S. PNEUMONIAE AG NEGATIVE (NEGATIVE); STREP. GROUP B AG NEGATIVE (NEGATIVE)
[2017-04-13 10:07] LABS: CSF CULTURED REQUIRED CSF CULTURE ORDERED (CSFY)
[2017-04-13] MEDS ORDERED: ACETAMINOPHEN 650 MG SUPP.RECT PR ONE (10:26)
[2017-04-13] MEDS: THIAMINE HCL 100 MG, FOLIC ACID 1 MG in NORMAL SALINE 50 ML IV SCH (10:43)
[2017-04-13] MEDS ORDERED: NORMAL SALINE 1000 ML 1,000 ML IV ONE ×2 (10:52→10:55)
[2017-04-13] MEDS ORDERED: DEXTROSE 5%-WATER 250 ML with NOREPINEPHRINE BITARTRATE 4 MG IV PRN ×2 (10:52)
[2017-04-13] MEDS ORDERED: METHYLPREDNISOLONE INJ 40 MG/1 ML SDV IV ONE (10:54)
[2017-04-13] MEDS ORDERED: NORMAL SALINE IV ONE (11:00)
[2017-04-13] MEDS ORDERED: KETOROLAC TROMETHAMINE INJ/PF 30 MG/1 ML SDV IV ONE (11:00)
[2017-04-13] MEDS ORDERED: PANTOPRAZOLE SODIUM 40 MG VIAL IV ONE (11:00)
[2017-04-13] MEDS ORDERED: FUROSEMIDE INJ/PF 40 MG/4 ML SDV IM ONE (11:00)
[2017-04-13] MEDS ORDERED: THIAMINE HCL IV ONE (11:00)
[2017-04-13] MEDS ORDERED: METHYLPREDNISOLONE INJ 125 MG/2 ML SDV IV ONE (11:30)
--- NOTE | 2017-04-13 12:16 | EKG REPORT ---
SEVERITY:- OTHERWISE NORMAL ECG - SINUS TACHYCARDIA : Confirmed by: Fransisca Arrieta MD 13-Apr-2017 12:15:28
--- NOTE | 2017-04-13 12:17 | RADIOLOGY REPORT (SQ) ---
EXAM DESCRIPTION: CHEST SINGLE VIEW COMPLETED DATE/TIME: 04/13/2017 11:46 am REASON FOR STUDY: central line placement COMPARISON: AP chest 04/13/2017 CT chest 04/12/2017 EXAM PARAMETERS: NUMBER OF VIEWS: One view. TECHNIQUE: Single frontal radiographic view of the chest acquired. RADIATION DOSE: NA LIMITATIONS: None. FINDINGS: General placement of a right-sided triple-lumen catheter. The tip is at the junction of t he right subclavian and internal jugular vein. No apical pneumothorax. LUNGS AND PLEURA: Persistent right lung volume loss with bandlike atelectasis at the right lung base. Left lung well inflated and clear. No pleural effusions. MEDIASTINUM AND HILAR STRUCTURES: Fullness right hilum unchanged HEART AND VASCULAR STRUCTURES: Heart normal in size. Normal vasculature. BONES: No acute findings. HARDWARE: None in the chest. OTHER: No other significant finding. IMPRESSION: No pneumothorax post right triple-lumen catheter placement. Catheter tip is at the junc tion of the internal jugular and right subclavian veins TECHNICAL DOCUMENTATION: JOB ID: [id number]
[2017-04-13] MEDS: ALBUMIN HUMAN 50 ML IV SCH ×3 (12:55→14:32)
[2017-04-13] MEDS: DIAZEPAM 5 MG TABLET PO SCH ×2 (13:07→18:03)
[2017-04-13] MEDS: METHYLPREDNISOLONE INJ 125 MG/2 ML SDV IV SCH ×2 (13:07→21:46)
[2017-04-13] MEDS ORDERED: METHYLPREDNISOLONE INJ 40 MG/1 ML SDV IV SCH ×2 (14:00)
[2017-04-13 16:49] LABS: ARTERIAL BLOOD BASE EXCESS -3.9 mmol/L; ARTERIAL BLOOD O2 SATURATION 98.4 % (94-98)
[2017-04-13 16:50] LABS: ALANINE AMINOTRANSFERASE 75 U/L (21-72); ALBUMIN 3.4 g/dL (3.5-5.0); ALKALINE PHOSPHATASE 44 U/L (38-126); ANION GAP 10 (5-19); ASPARTATE AMINO TRANSFERASE 77 U/L (17-59); BILIRUBIN,DIRECT 0.5 mg/dL (0.0-0.4); BILIRUBIN,TOTAL 0.7 mg/dL (0.2-1.3); BLOOD UREA NITROGEN 20 mg/dL (7-20); CALCIUM 7.8 mg/dL (8.4-10.2); CARBON DIOXIDE 22 mmol/L (22-30); CHLORIDE 105 mmol/L (98-107); CREATININE RESULT 0.86 mg/dL (0.52-1.25); GLUCOSE 190 mg/dL (75-110); MAGNESIUM 1.9 mg/dL (1.6-2.3); POTASSIUM 4.1 mmol/L (3.6-5.0); SODIUM 136.6 mmol/L (137-145); TOTAL PROTEIN 6.6 g/dL (6.3-8.2)
--- NOTE | 2017-04-13 17:28 | Operative Report ---
Operative Report DATE OF SURGERY: 04/13/17 PREOPERATIVE DIAGNOSIS: Inadequate peripheral venous access POSTOPERATIVE DIAGNOSIS: Same OPERATION: Insertion of right subclavian vein triple-lumen catheter SURGEON: MAGALY NEW ANESTHESIA: Local COMPLICATIONS: None ESTIMATED BLOOD LOSS: Negligible PROCEDURE: After consent obtained, the patient was placed in the Trendelenburg position, and the right chest was prepped and draped in usual sterile manner. Timeout was achieved, and local anesthesia was injected between the clavicle and the first rib. Right subclavian vein was then accessed percutaneously, and when there was a flash of venous blood in the syringe, the syringe was removed and a guidewire was inserted. The guidewire was advanced presumably into the superior vena cava, and this was confirmed by the presence of ectopy. The guidewire was retracted to eliminate the ectopy, and then a vein dilator was placed over the guidewire. Using the sterile Seldinger technique, a triple- lumen catheter was advanced over the guidewire, as the guidewire was removed. Once the catheter was placed at the 15 cm nghia, all lumens were flushed with saline. The catheter was secured in the usual manner, and the Biopatch and Tegaderm was applied. Chest x-ray confirmed the position of the catheter in the superior vena cava, with no evidence of pneumothorax. The patient tolerated procedure well, and the triple-lumen catheter can be accessed at this time.
[2017-04-13] MEDS: CLONIDINE HCL 0.1 MG TABLET PO SCH (19:42)
--- NOTE | 2017-04-13 21:18 | PDOC PROGRESS REPORT ---
Subjective Progress Note for:: 04/13/17 Subjective:: Patient is responsive to noxious stimuli. Called for tachypnea. Patient is currently febrile with a temperature of 38.6C. Physical Exam Vital Signs: Temp Pulse Resp BP Pulse Ox 100.9 F H 95 33 H 118/85 96 04/13/17 08:00 04/13/17 09:58 04/13/17 10:36 04/13/17 09:58 04/13/17 10:36 Intake & Output 04/12/17 04/13/17 04/14/17 06:59 06:59 06:59 Intake Total 2010 3065 Output Total 250 1300 250 Balance 1761 1765 -250 Weight 117.9 kg 122.4 kg Exam: GENERAL: Moderate respiratory distress, tachypnea, older than stated age appearing, acutely ill-appearing HEENT: Pupils equal round and reactive to light and accommodation, conjunctiva clear, nonicteric, moist mucous membranes, + 2 JVD , midline trachea RESPIRATORY: Rhonchi bilaterally, bilateral bibasilar rales tachypnea, accessory muscle usage, mild retractions CARDIAC: tachycardic, RRR, ABDOMEN: Soft, mildlydistended, nontender, positive bowel sounds, no rebound, no guarding, no rigidity EXTREMETIES: No cyanosis, clubbing; + 1 edema bilateral lower extremities NEUROLOGIC: Unable to assess due to alteration in mentation SKIN: No rash, wounds Results Laboratory Results: 04/13/17 06:01 04/13/17 04:19 04/12/17 04/12/17 04/12/17 10:55 13:15 14:10 WBC RBC Hgb Hct MCV MCH MCHC RDW Plt Count Seg Neutrophils % Lymphocytes % Monocytes % Eosinophils % Basophils % Absolute Neutrophils Absolute Lymphocytes Absolute Monocytes Absolute Eosinophils Absolute Basophils Carbonic Acid 1.07 HCO3/H2CO3 Ratio 20:1 ABG pH 7.41 ABG pCO2 35.4 ABG pO2 99.7 ABG HCO3 21.7 ABG O2 Saturation 97.6 ABG Base Excess -2.3 FiO2 10L Sodium Potassium Chloride Carbon Dioxide Anion Gap BUN Creatinine Est GFR ( Amer) Est GFR (Non-Af Amer) Glucose Lactic Acid Calcium Magnesium Total Bilirubin AST ALT Alkaline Phosphatase Ammonia < 8.7 L Total Protein Albumin Fluid Tube Number 3 CSF Volume 4.0 CSF Appearance CLEAR CSF Color COLORLESS CSF WBC 2 CSF RBC 11 CSF Comment CSF Glucose CSF Total Protein 04/12/17 04/12/17 04/12/17 14:10 14:10 15:35 WBC Cancelled RBC Cancelled Hgb Cancelled Hct Cancelled MCV Cancelled MCH Cancelled MCHC Cancelled RDW Cancelled Plt Count Cancelled Seg Neutrophils % Cancelled Lymphocytes % Cancelled Monocytes % Cancelled Eosinophils % Cancelled Basophils % Cancelled Absolute Neutrophils Cancelled Absolute Lymphocytes Cancelled Absolute Monocytes Cancelled Absolute Eosinophils Cancelled Absolute Basophils Cancelled Carbonic Acid HCO3/H2CO3 Ratio ABG pH ABG pCO2 ABG pO2 ABG HCO3 ABG O2 Saturation ABG Base Excess FiO2 Sodium Potassium Chloride Carbon Dioxide Anion Gap BUN Creatinine Est GFR ( Amer) Est GFR (Non-Af Amer) Glucose Lactic Acid Calcium Magnesium Total Bilirubin AST ALT Alkaline Phosphatase Ammonia Total Protein Albumin Fluid Tube Number CSF Volume CSF Appearance CSF Color CSF WBC CSF RBC CSF Comment CSF CULTURE ORDERED CSF Glucose 70 CSF Total Protein 129 H 04/12/17 04/12/17 04/12/17 15:35 15:35 16:10 WBC 3.0 L RBC 5.16 Hgb 16.0 Hct 47.4 MCV 92 MCH 31.0 MCHC 33.8 RDW 13.7 Plt Count 93 L Seg Neutrophils % 83.2 H Lymphocytes % 11.0 L Monocytes % 4.8 Eosinophils % 0.1 Basophils % 0.9 Absolute Neutrophils 2.5 Absolute Lymphocytes 0.3 L Absolute Monocytes 0.1 Absolute Eosinophils 0.0 Absolute Basophils 0.0 Carbonic Acid HCO3/H2CO3 Ratio ABG pH ABG pCO2 ABG pO2 ABG HCO3 ABG O2 Saturation ABG Base Excess FiO2 Sodium 134.5 L Potassium 4.0 Chloride 104 Carbon Dioxide 20 L Anion Gap 11 BUN 22 H Creatinine 1.06 Est GFR ( Amer) > 60 Est GFR (Non-Af Amer) > 60 Glucose 127 H Lactic Acid 1.4 Calcium 8.1 L Magnesium 2.1 Total Bilirubin 0.6 AST 87 H ALT 82 H Alkaline Phosphatase 51 Ammonia Total Protein 7.1 Albumin 3.4 L Fluid Tube Number CSF Volume CSF Appearance CSF Color CSF WBC CSF RBC CSF Comment CSF Glucose CSF Total Protein 04/13/17 04/13/17 04/13/17 04:19 04:19 06:01 WBC Cancelled 3.3 L RBC Cancelled 5.07 Hgb Cancelled 15.5 Hct Cancelled 47.8 MCV Cancelled 94 MCH Cancelled 30.7 MCHC Cancelled 32.5 RDW Cancelled 13.8 Plt Count Cancelled 79 L Seg Neutrophils % Cancelled 67.0 Lymphocytes % Cancelled 20.4 Monocytes % Cancelled 11.3 Eosinophils % Cancelled 0.2 Basophils % Cancelled 1.1 Absolute Neutrophils Cancelled 2.2 Absolute Lymphocytes Cancelled 0.7 Absolute Monocytes Cancelled 0.4 Absolute Eosinophils Cancelled 0.0 Absolute Basophils Cancelled 0.0 Carbonic Acid HCO3/H2CO3 Ratio ABG pH ABG pCO2 ABG pO2 ABG HCO3 ABG O2 Saturation ABG Base Excess FiO2 Sodium 138.1 Potassium 4.6 Chloride 108 H Carbon Dioxide 23 Anion Gap 7 BUN 23 H Creatinine 0.93 Est GFR ( Amer) > 60 Est GFR (Non-Af Amer) > 60 Glucose 89 Lactic Acid Calcium 8.3 L Magnesium 2.2 Total Bilirubin 0.7 AST 100 H ALT 89 H Alkaline Phosphatase 49 Ammonia Total Protein 6.9 Albumin 3.3 L Fluid Tube Number CSF Volume CSF Appearance CSF Color CSF WBC CSF RBC CSF Comment CSF Glucose CSF Total Protein 04/13/17 08:35 WBC RBC Hgb Hct MCV MCH MCHC RDW Plt Count Seg Neutrophils % Lymphocytes % Monocytes % Eosinophils % Basophils % Absolute Neutrophils Absolute Lymphocytes Absolute Monocytes Absolute Eosinophils Absolute Basophils Carbonic Acid 1.31 HCO3/H2CO3 Ratio 17:1 ABG pH 7.35 ABG pCO2 43.4 ABG pO2 192.7 H ABG HCO3 23.4 ABG O2 Saturation 99.3 H ABG Base Excess -2.2 FiO2 100 Sodium Potassium Chloride Carbon Dioxide Anion Gap BUN Creatinine Est GFR ( Amer) Est GFR (Non-Af Amer) Glucose Lactic Acid Calcium Magnesium Total Bilirubin AST ALT Alkaline Phosphatase Ammonia Total Protein Albumin Fluid Tube Number CSF Volume CSF Appearance CSF Color CSF WBC CSF RBC CSF Comment CSF Glucose CSF Total Protein 04/12/17 03:21 Nasophary (Mrsa Only) MRSA Surveillance Culture - Final NO MRSA RECOVERED Impressions: Cervical Spine CT 04/11/17 00:05 IMPRESSION: No CT evidence for acute fracture in the cervical spine. Degenerative changes. Head MRI 04/11/17 05:46 IMPRESSION: Motion artifact. Question small lacunar infarct in the right ashleigh. Extensive chronic small vessel disease. Demyelinating disease could not entirely be excluded Abdomen/Pelvis CT 04/12/17 00:00 IMPRESSION: No acute findings. Chest CT 04/12/17 00:00 IMPRESSION: Linear densities are identified at the lung bases which could represent atelectatic changes or scarring. Calcified granuloma in the posterior sulcus on the left. Other findings as noted above Guidance Fluoroscopy 04/12/17 00:00 IMPRESSION: Lumbar puncture under fluoroscopy. No immediate complication. Head CT 04/12/17 00:00 IMPRESSION: 1. There is no acute intracranial pathology. 2. 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 Lumbar Puncture 04/12/17 00:00 IMPRESSION: Lumbar puncture under fluoroscopy. No immediate complication. Lung Scan-VQ NM 04/12/17 00:00 IMPRESSION: NORMAL PERFUSION LUNG SCAN. Neck CTA 04/12/17 00:00 IMPRESSION: NORMAL CTA OF THE EXTRA-CRANIAL CAROTID AND VERTEBRAL ARTERIES. Chest X-Ray 04/13/17 00:00 IMPRESSION: Linear density in the right mid lung field as noted above which could represent atelectatic changes or could represent a small amount of fluid in the minor fissure. Some minimal linear densities are identified in the lung bases which were identified on recent abdominal CT scan. Other findings as noted above Assessment & Plan - Diagnosis (1) Sepsis Qualifiers: Sepsis type: sepsis due to unspecified organism Qualified Code(s): A41.9 - Sepsis, unspecified organism Is this a current diagnosis for this admission?: YesPlan: Concern for underlying encephalitis given the results of patient's CSF. Will obtain neurology consultation for assistance in this. Patient is currently on broad-spectrum antibiotic coverage with Rocephin, vancomycin, cefepime, ampicillin, Cyclovir. As patient's laboratory studies resolved will decrease these. (2) Encephalitis Is this a current diagnosis for this admission?: YesPlan: Will obtain neurology consultation for assistance in this. Patient is currently on broad-spectrum antibiotic coverage with Rocephin, vancomycin, cefepime, ampicillin, Cyclovir. As patient's laboratory studies resolved will decrease these. Lyme currently pending. Ordered HSV, EBV, directagen panel, enterovirus, [place], and ulysses ink. That patient's picture is complicated due to his underlying polysubstance abuse. (3) Acute diastolic (congestive) heart failure Is this a current diagnosis for this admission?: YesPlan: Currently, volume overloaded. Echocardiogram performed on 04/12/17 reveals EF greater than 60 percent and grade 1 diastolic dysfunction. Given patient Lasix with improvement of his oxygenation. Patient is on an ANALI and an ARB as an outpatient, but these are being held due to hypotension as patient is on levophed currently. No beta-blockers due to his use of cocaine. (4) Hepatitis C infection Qualifiers: Viral hepatitis chronicity: chronic Hepatic coma status: without hepatic coma Qualified Code(s): B18.2 - Chronic viral hepatitis C Is this a current diagnosis for this admission?: YesPlan: Hold harvoni at this time due to active infection (5) Cocaine abuse Is this a current diagnosis for this admission?: YesPlan: haldol prn family reports frequent usage (6) Tobacco user Is this a current diagnosis for this admission?: YesPlan: nicotine patch prn (7) Diabetes mellitus type 2 Is this a current diagnosis for this admission?: YesPlan: place on d5 1/2NS @ 43mL/hr and accuchecks q6. hold lantus (8) Vitamin B12 deficiency Is this a current diagnosis for this admission?: YesPlan: Place patient on IM B12. (9) Alcohol abuse Is this a current diagnosis for this admission?: YesPlan: Suspect patient abuses alcohol more than is known by family. Continue as needed Ativan but decreased dosage. Continue electrolyte repletion and monitor for arrhythmia. - Time Critical Time spent with patient: 35 or more minutes Medications reviewed and adjusted accordingly: Yes
[2017-04-13] MEDS: PANTOPRAZOLE SODIUM 40 MG VIAL IV SCH (21:46)
[2017-04-13] MEDS ORDERED: CYANOCOBALAMIN (VITAMIN B-12) INJ 1000 MCG/1 ML VIAL IM SCH (22:00)
[2017-04-13] MEDS: INSULIN LISPRO 100 UNIT/ML 3 ML VIAL SUBCUT PRN (23:29)
[2017-04-14] MEDS: LORAZEPAM INJ 2 MG/1 ML VIAL IV PRN ×2 (00:11→09:18)
[2017-04-14] MEDS: HALOPERIDOL LACTATE INJ 5 MG/1 ML VIAL IV PRN ×2 (01:56→10:15)
[2017-04-14 04:47] LABS: ALANINE AMINOTRANSFERASE 75 U/L (21-72); ALBUMIN 3.1 g/dL (3.5-5.0); ALKALINE PHOSPHATASE 41 U/L (38-126); ANION GAP 11 (5-19); ASPARTATE AMINO TRANSFERASE 62 U/L (17-59); BILIRUBIN,DIRECT 0.4 mg/dL (0.0-0.4); BILIRUBIN,TOTAL 0.5 mg/dL (0.2-1.3); BLOOD UREA NITROGEN 25 mg/dL (7-20); CALCIUM 8.5 mg/dL (8.4-10.2); CARBON DIOXIDE 22 mmol/L (22-30); CHLORIDE 105 mmol/L (98-107); CREATININE RESULT 0.87 mg/dL (0.52-1.25); GLUCOSE 189 mg/dL (75-110); PHOSPHORUS 3.6 mg/dL (2.5-4.5); POTASSIUM 4.2 mmol/L (3.6-5.0); SODIUM 137.5 mmol/L (137-145); TOTAL PROTEIN 6.4 g/dL (6.3-8.2)
[2017-04-14 04:58] LABS: PREALBUMIN 7.4 mg/dL (17.6-36.0)
[2017-04-14] MEDS: ACYCLOVIR SODIUM 750 MG in NORMAL SALINE 250 ML IV SCH (05:08)
[2017-04-14] MEDS: METHYLPREDNISOLONE INJ 125 MG/2 ML SDV IV SCH (05:08)
[2017-04-14] MEDS: VANCOMYCIN HCL 1,250 MG in DEXTROSE 5%-WATER 250 ML IV SCH (05:08)
[2017-04-14] MEDS: CEFTRIAXONE 2 GM/D5W RTU 2 GM/50 ML RTUPB IV SCH (05:09)
[2017-04-14] MEDS: INSULIN LISPRO 100 UNIT/ML 3 ML VIAL SUBCUT PRN (05:12)
[2017-04-14 05:32] LABS: HEMATOCRIT 41.8 % (37.9-51.0); HGB HCT DIFFERENCE 0.2; MEAN CORPUSCULAR HEMOGLOBIN 30.7 pg (27.0-33.4); MEAN CORPUSCULAR HGB CONC 33.5 g/dL (32.0-36.0); MEAN CORPUSCULAR VOLUME 92 fl (80-97); RED BLOOD COUNT 4.57 10^6/uL (4.35-5.55); RED CELL DISTRIBUTION WIDTH 13.5 % (11.5-14.0)
[2017-04-14 05:37] LABS: BAND NEUTROPHILS % (MANUAL) 7 % (3-5); BASOPHILS % (MANUAL) 0 % (0-2); EOSINOPHILS % (MANUAL) 0 % (0-6); LYMPHOCYTES % (MANUAL) 24 % (13-45); TOTAL CELLS COUNTED 100
[2017-04-14 05:40] LABS: BURR CELLS SLIGHT; OVALOCYTES SLIGHT; POIKILOCYTOSIS SLIGHT; SCHISTOCYTES SLIGHT; TEAR DROP CELLS SLIGHT; TOXIC GRANULATION 1+
[2017-04-14 05:43] LABS: WHITE BLOOD COUNT 2.2 10^3/uL (4.0-10.5)
--- NOTE | 2017-04-14 07:17 | RADIOLOGY REPORT (SQ) ---
EXAM DESCRIPTION: CHEST SINGLE VIEW COMPLETED DATE/TIME: 04/14/2017 6:18 am REASON FOR STUDY: chf COMPARISON: 04/13/2017. EXAM PARAMETERS: NUMBER OF VIEWS: One view. TECHNIQUE: Single frontal radiographic view of the chest acquired. RADIATION DOSE: NA LIMITATIONS: None. FINDINGS: LUNGS AND PLEURA: Moderate right lung volume. Mild reticular nodular interstitial marking s. Small left lower lobar linear atelectasis. MEDIASTINUM AND HILAR STRUCTURES: No masses. Contour normal. HEART AND VASCULAR STRUCTURES: Heart normal in size. Normal vasculature. BONES: No acute findings. HARDWARE: Right internal jugular central line tip 6 cm above the cavoatrial junction. OTHER: No other significant finding. IMPRESSION: No significant interval change. TECHNICAL DOCUMENTATION: JOB ID: [id number]
[2017-04-14 07:37] LABS: HSV SOURCE CSF
[2017-04-14] MEDS ORDERED: INSULIN GLARGINE,HUM.REC.ANLOG 1,000 UNIT/10 ML UNIT SUBCUT ONE (09:00)
[2017-04-14] MEDS: THIAMINE HCL 100 MG, FOLIC ACID 1 MG in NORMAL SALINE 50 ML IV SCH (09:27)
[2017-04-14] MEDS: PANTOPRAZOLE SODIUM 40 MG VIAL IV SCH (09:27)
[2017-04-14] MEDS: DEXTROSE 5%-1/2 NORMAL SALINE 1,000 ML IV PRN ×2 (09:38→10:25)
[2017-04-14] MEDS ORDERED: PROPOFOL 100 ML IV ONE (09:39)
[2017-04-14] MEDS ORDERED: DEXTROSE 40% GEL 15 GM TUBE NG PRN ×2 (09:45→09:46)
[2017-04-14] MEDS ORDERED: PHARMACY COMMUNICATION ORDER MC NR (09:45)
[2017-04-14] MEDS ORDERED: ACETAMINOPHEN 325 MG TABLET NG PRN (09:45)
[2017-04-14 09:55] LABS: PROTHROMBIN TIME 14.5 SEC (11.4-15.4)
[2017-04-14 09:56] LABS: FIBRINOGEN 247 mg/dL (209-497); PARTIAL THROMBOPLASTIN TIME 32.5 SEC (23.5-35.8)
--- NOTE | 2017-04-14 09:58 | PDOC TRANSFER SUMMARY ---
General Admission Date/PCP: 04/11/17 16:33 ABHINAV RIVERA Admission Date: 04/11/17 Transfer Date: 04/14/17 Accepting Facility: [facility] Resuscitation Status: Full Code - Transfer Diagnosis (1) Sepsis Is this a current diagnosis for this admission?: Yes (2) Encephalitis Is this a current diagnosis for this admission?: Yes (3) Acute diastolic (congestive) heart failure Is this a current diagnosis for this admission?: Yes (4) Hepatitis C infection Is this a current diagnosis for this admission?: Yes (5) Cocaine abuse Is this a current diagnosis for this admission?: Yes (6) Diabetes mellitus type 2 Is this a current diagnosis for this admission?: Yes (7) Vitamin B12 deficiency Is this a current diagnosis for this admission?: Yes (8) Alcohol abuse Is this a current diagnosis for this admission?: Yes (9) Tobacco user Is this a current diagnosis for this admission?: Yes (10) Aspiration pneumonia Is this a current diagnosis for this admission?: Yes (11) Acute hypoxemic respiratory failure Is this a current diagnosis for this admission?: Yes (12) Ataxia Is this a current diagnosis for this admission?: Yes (13) Encephalopathy Is this a current diagnosis for this admission?: Yes (14) Essential hypertension Is this a current diagnosis for this admission?: Yes (15) Thrombocytopenia Is this a current diagnosis for this admission?: Yes (16) DIC (disseminated intravascular coagulation) Is this a current diagnosis for this admission?: Yes (17) Leukopenia Is this a current diagnosis for this admission?: Yes - Transfer Medications Home Medications: Clotrimazole [Mycelex 10 mg Angel] 10 mg PO TID 04/11/17 Etodolac [Lodine] 400 mg PO Q12 04/11/17 Ibuprofen [Motrin 800 mg Tablet] 800 mg PO Q8 04/11/17 Insulin Glargine,Hum.rec.anlog [Lantus Solostar] 15 units SQ DAILY 04/11/17 Irbesartan [Avapro] 300 mg PO DAILY 04/11/17 Ledipasvir/Sofosbuvir [Harvoni 90-400 mg Tablet] 1 tab PO DAILY 04/11/17 Lisinopril [Prinivil 40 mg Tablet] 40 mg PO DAILY 04/11/17 Transfer Medications: Current Medications Acetaminophen (Tylenol 325 Mg Tablet) 650 mg PO Q4HP PRN PRN Reason: MILD PAIN OR FEVER Stop: 05/11/17 16:31 Acetaminophen (Tylenol 650 Mg Supp) 650 mg OK Q4HP PRN PRN Reason: FEVER Stop: 05/12/17 12:48 Last Admin: 04/13/17 08:01 Dose: 650 mg Cyanocobalamin (Vitamin B-12 Inj 1000 Mcg/1 Ml Vial) 1,000 mcg IM QHS [facility] Stop: 05/13/17 21:59 Last Admin: 04/13/17 21:46 Dose: 1,000 mcg Dextrose (Dextrose Inj 50% Syringe (25 Gm/50 Ml)) 12.5 gm IV PRN PRN; Protocol PRN Reason: FOR BG 50-69 IN ALERT PATIENT Stop: 05/11/17 16:30 Dextrose (Dextrose Inj 50% Syringe (25 Gm/50 Ml)) 25 gm IV PRN PRN PRN Reason: Protocol Stop: 05/11/17 16:30 Glucagon (Glucagen Inj 1 Mg Vial) 1 mg IM PRN PRN; Protocol PRN Reason: Evaluate for BG < 70 Stop: 05/11/17 16:30 Glucose (Glutose 40% Gel 15 Gm Tube) 15 gm PO PRN PRN; Protocol PRN Reason: FOR BG 50-69 IN ALERT PATIENT Stop: 05/11/17 16:30 Glucose (Glutose 40% Gel 15 Gm Tube) 30 gm PO PRN PRN; Protocol PRN Reason: FOR BG < 50 IN ALERT PATIENT Stop: 05/11/17 16:30 Haloperidol Lactate (Haldol 5 Mg/Ml Inj 1 Ml Vial) 2 mg IV Q4HP PRN Stop: 05/13/17 09:30 Last Admin: 04/14/17 01:56 Dose: 2 mg Acyclovir Sodium 750 mg/ (Sodium Chloride) 265 mls @ 265 mls/hr IV Q8 [facility] Stop: 04/19/17 13:59 Last Admin: 04/14/17 05:08 Dose: 750 mg Ceftriaxone Sodium/Dextrose (Rocephin Rtu 2 Gm/D5w 50 Ml Premix Bag) 2 gm in 50 mls @ 100 mls/hr IV Q12A [facility] Stop: 04/19/17 17:59 Last Admin: 04/14/17 05:09 Dose: 50 ml Vancomycin HCl 1,250 mg/ (Dextrose) 250 mls @ 166.667 mls/hr IV Q8 [facility] Stop: 04/19/17 21:59 Last Admin: 04/14/17 05:08 Dose: 1,250 mg Dextrose/Sodium Chloride (D5-1/2ns 1000 Ml Iv Soln) 1,000 mls @ 63 mls/hr IV CONTINUOUS PRN PRN Reason: THIS MED IS NOT "PRN" Stop: 05/13/17 08:41 Thiamine HCl 100 mg/ Folic (Acid 1 mg/ Sodium Chloride) 51.2 mls @ 100 mls/hr IV DAILY [facility] Stop: 05/13/17 09:59 Last Admin: 04/13/17 10:43 Dose: 100 mg Norepinephrine Bitartrate 4 mg (/ Dextrose) 254 mls @ 0 mls/hr IV CONTINUOUS PRN; Protocol; Titrate PRN Reason: THIS MED IS NOT "PRN" Stop: 05/13/17 10:51 Last Admin: 04/13/17 11:00 Dose: 4 mg Insulin Glargine (Lantus Insulin Inj 300 Unit/3 Ml Pen) 15 unit SUBCUT DAILY [facility] Stop: 05/12/17 09:59 Last Admin: 04/12/17 12:14 Dose: Not Given Insulin Glargine (Lantus Insulin 100 Unit/1 Ml 10 Ml) 5 unit SUBCUT NOW ONE Stop: 04/14/17 09:01 Insulin Human Lispro (Humalog Insulin 100 Unit/1 Ml 3 Ml Vial) 0 - 12 unit SUBCUT ACHSP PRN PRN Reason: Protocol Stop: 05/11/17 16:30 Last Admin: 04/14/17 05:12 Dose: 2 unit Lorazepam (Ativan Inj 2 Mg/1 Ml Vial) 2 mg IV Q2HP PRN PRN Reason: MILD ANXIETY / AGITATION Stop: 04/18/17 21:32 Last Admin: 04/14/17 00:11 Dose: 2 mg Methylprednisolone Sodium Succinate (Solu-Medrol Inj/Pf 125 Mg/2 Ml Sdv) 80 mg IV Q8 [facility] Stop: 05/13/17 13:59 Last Admin: 04/14/17 05:08 Dose: 80 mg Nicotine (Nicoderm 21 Mg/24 Hr Transderm Patch) 1 each TD DAILYP PRN PRN Reason: NICOTINE WITHDRAWAL SX Stop: 05/11/17 18:00 Pantoprazole Sodium (Protonix Iv Inj 40 Mg Vial) 40 mg IV Q12 [facility]IS[facility] Stop: 04/16/17 21:59 Last Admin: 04/13/17 21:46 Dose: 40 mg Sodium Chloride (Saline Flush 2.5 Ml Monoject Prefil Syrin) 2.5 ml IV Q8 [facility]IS[facility] Stop: 05/11/17 13:59 Last Admin: 04/14/17 05:09 Dose: 2.5 ml - Allergies Allergies/Adverse Reactions: No Known Allergies Allergy (Unverified 02/18/12 20:40) - Diet/Activity Discharge Diet: Other (Comments) - NPO Discharge Activity: Bedrest Hospital Course Hospital Course: Patient was admitted on 04/11/2017 for ataxia with dizziness and initially, was worked up for neuropathy with concern for TIA/CVA. That evening, patient developed a fever of 102.6. Patient subsequent workup on 04/12/[address] of the chest abdomen and pelvis, lumbar puncture, VQ scan, and CT of the head. Patient on 04/12/2017 was noted to have sepsis with leukopenia, fever, tachypnea, and acute encephalopathy. Patient was combative and given initially increasing doses of Ativan for what was thought to be alcohol abuse/withdrawal. Patient on admission was found to be cocaine positive. Patient was transferred to the ICU secondary to hypoxia and increased need for sedation. In the ICU, patient was found to have acute on chronic diastolic congestive heart failure and was diuresed successfully. He required BiPAP at that time. Ativan has been de- escalated after speaking with family who admits that he drinks daily apparently does not drink excessively. Haldol was continued. Patient was seen by neurology who recommended 24-hour EEG monitoring and a sedated MRI which cannot be performed at this facility. [facility] was contacted and Dr. Delvalle kindly accepted this patient. Due to patient's neurologic status, he was intubated prior to transfer for airway protection And further evaluation Physical Exam Vital Signs: Temp Pulse Resp BP Pulse Ox 97.2 F 78 22 H 140/95 H 99 04/14/17 08:00 04/14/17 08:00 04/14/17 08:00 04/14/17 08:00 04/14/17 08:00 Intake & Output 04/13/17 04/14/17 04/15/17 06:59 06:59 06:59 Intake Total 3064 4972 Output Total 2550 3460 75 Balance 1765 1512 -75 Weight 122.4 kg 122.2 kg Exam: GENERAL: Writhing, incoherent, No acute respiratory distress, older than stated age appearing, acutely ill-appearing HEENT: Pupils equal round and reactive to light and accommodation, conjunctiva clear, right scleral edema, nonicteric, tacky mucous membranes, + JVD , midline trachea RESPIRATORY: On bipap, rhonchi RLL, RML CARDIAC: RRR, no m/r/g ABDOMEN: Soft, mildlydistended, nontender, positive bowel sounds, no rebound, no guarding, no rigidity EXTREMETIES: No cyanosis, clubbing; + 1 edema bilateral lower extremities NEUROLOGIC: moving extremities equally, unable to assess due to encephalopathy SKIN: No rash, wounds Results Laboratory Results: 04/14/17 04:20 04/14/17 04:20 04/12/17 04/13/17 04/13/17 14:10 15:08 16:20 WBC RBC Hgb Hct MCV MCH MCHC RDW Plt Count Seg Neutrophils % Lymphocytes % Monocytes % Eosinophils % Basophils % Absolute Neutrophils Absolute Lymphocytes Absolute Monocytes Absolute Eosinophils Absolute Basophils Carbonic Acid HCO3/H2CO3 Ratio ABG pH ABG pCO2 ABG pO2 ABG HCO3 ABG O2 Saturation ABG Base Excess FiO2 Sodium 136.6 L Potassium 4.1 Chloride 105 Carbon Dioxide 22 Anion Gap 10 BUN 20 Creatinine 0.86 Est GFR ( Amer) > 60 Est GFR (Non-Af Amer) > 60 Glucose 190 H Calcium 7.8 L Phosphorus Magnesium 1.9 Total Bilirubin 0.7 AST 77 H ALT 75 H Alkaline Phosphatase 44 Ammonia < 8.7 L Total Protein 6.6 Albumin 3.4 L Prealbumin CSF Comment CSF CULTURE ORDERED 04/13/17 04/14/17 04/14/17 16:30 04:20 04:20 WBC 2.2 L D RBC 4.57 Hgb 14.0 Hct 41.8 MCV 92 MCH 30.7 MCHC 33.5 RDW 13.5 Plt Count 71 L Seg Neutrophils % Not Reportable Lymphocytes % Not Reportable Monocytes % Not Reportable Eosinophils % Not Reportable Basophils % Not Reportable Absolute Neutrophils Not Reportable Absolute Lymphocytes Not Reportable Absolute Monocytes Not Reportable Absolute Eosinophils Not Reportable Absolute Basophils Not Reportable Carbonic Acid 1.12 HCO3/H2CO3 Ratio 18:1 ABG pH 7.37 ABG pCO2 37.2 ABG pO2 124.4 H ABG HCO3 20.9 ABG O2 Saturation 98.4 H ABG Base Excess -3.9 FiO2 35% Sodium 137.5 Potassium 4.2 Chloride 105 Carbon Dioxide 22 Anion Gap 11 BUN 25 H Creatinine 0.87 Est GFR ( Amer) > 60 Est GFR (Non-Af Amer) > 60 Glucose 189 H Calcium 8.5 Phosphorus 3.6 Magnesium 2.0 Total Bilirubin 0.5 AST 62 H ALT 75 H Alkaline Phosphatase 41 Ammonia Total Protein 6.4 Albumin 3.1 L Prealbumin 7.4 L CSF Comment 04/14/17 04:20 WBC RBC Hgb Hct MCV MCH MCHC RDW Plt Count Seg Neutrophils % Lymphocytes % Monocytes % Eosinophils % Basophils % Absolute Neutrophils Absolute Lymphocytes Absolute Monocytes Absolute Eosinophils Absolute Basophils Carbonic Acid HCO3/H2CO3 Ratio ABG pH ABG pCO2 ABG pO2 ABG HCO3 ABG O2 Saturation ABG Base Excess FiO2 Sodium Potassium Chloride Carbon Dioxide Anion Gap BUN Creatinine Est GFR ( Amer) Est GFR (Non-Af Amer) Glucose Calcium Phosphorus Magnesium Total Bilirubin AST ALT Alkaline Phosphatase Ammonia < 8.7 L Total Protein Albumin Prealbumin CSF Comment 04/12/17 03:21 Nasophary (Mrsa Only) MRSA Surveillance Culture - Final NO MRSA RECOVERED 04/13/17 15:08 NT-Pro-B Natriuret Pep 123 Impressions: Cervical Spine CT 04/11/17 00:05 IMPRESSION: No CT evidence for acute fracture in the cervical spine. Degenerative changes. Head MRI 04/11/17 05:46 IMPRESSION: Motion artifact. Question small lacunar infarct in the right ashleigh. Extensive chronic small vessel disease. Demyelinating disease could not entirely be excluded Abdomen/Pelvis CT 04/12/17 00:00 IMPRESSION: No acute findings. Chest CT 04/12/17 00:00 IMPRESSION: Linear densities are identified at the lung bases which could represent atelectatic changes or scarring. Calcified granuloma in the posterior sulcus on the left. Other findings as noted above Guidance Fluoroscopy 04/12/17 00:00 IMPRESSION: Lumbar puncture under fluoroscopy. No immediate complication. Head CT 04/12/17 00:00 IMPRESSION: 1. There is no acute intracranial pathology. 2. 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 Lumbar Puncture 04/12/17 00:00 IMPRESSION: Lumbar puncture under fluoroscopy. No immediate complication. Lung Scan-VQ NM 04/12/17 00:00 IMPRESSION: NORMAL PERFUSION LUNG SCAN. Neck CTA 04/12/17 00:00 IMPRESSION: NORMAL CTA OF THE EXTRA-CRANIAL CAROTID AND VERTEBRAL ARTERIES. Chest X-Ray 04/14/17 06:00 IMPRESSION: No significant interval change. Plan Time Spent: Greater than 30 Minutes
[2017-04-14] MEDS ORDERED: FENTANYL CITRATE INJ/PF 100 MCG/2 ML AMPUL IV PRN (10:10)
[2017-04-14] MEDS ORDERED: LORAZEPAM INJ 2 MG/1 ML VIAL ONE (10:12)
[2017-04-14] MEDS ORDERED: FENTANYL CITRATE INJ/PF 100 MCG/2 ML AMPUL ONE (10:14)
[2017-04-14] MEDS: PROPOFOL 100 ML IV PRN ×3 (10:24→13:09)
--- NOTE | 2017-04-14 10:45 | RADIOLOGY REPORT (SQ) ---
EXAM DESCRIPTION: CHEST SINGLE VIEW COMPLETED DATE/TIME: 04/14/2017 10:37 am REASON FOR STUDY: tube placement COMPARISON: Earlier the same day. NUMBER OF VIEWS: One view. TECHNIQUE: Single frontal radiographic image of the chest acquired. LIMITATIONS: None. FINDINGS: LUNGS AND PLEURA: No significant change. No pneumothorax. MEDIASTINUM AND HEART: Stable heart size and mediastinal structures. SUPPORT DEVICES: Unchanged position of right-sided port. Nasogastric tube tip overlying stomach. En dotracheal tube tip between thoracic inlet and margaret. BONY STRUCTURES: No acute findings. HARDWARE: None. OTHER: No other significant finding. IMPRESSION: Good position of support apparatus. No pneumothorax.
[2017-04-14] MEDS ORDERED: FENTANYL CITRATE INJ/PF 100 MCG/2 ML AMPUL IV ONE (11:00)
[2017-04-14] MEDS ORDERED: LORAZEPAM INJ 2 MG/1 ML VIAL IV ONE (11:00)
[2017-04-14 12:11] LABS: ARTERIAL BLOOD BASE EXCESS -3.8 mmol/L; ARTERIAL BLOOD O2 SATURATION 98.2 % (94-98)
[2017-04-14] MEDS ORDERED: SUCCINYLCHOLINE CHLORIDE INJ 200 MG/10 ML VIAL ONE (12:49)
[2017-04-14 12:57] VITALS: BP 117/90
[2017-04-14 21:08] LABS: HSV I DNA Negative (Negative)
[2017-04-15 07:08] LABS: LYME DISEASE IGG AND IGM AB <0.91 ISR (0.00-0.90)
[2017-04-15 13:28] LABS: EPSTEIN BARR EARLY AG IGG AB <9.0 U/mL (0.0-8.9)
[2017-04-16 06:40] LABS: EBV EARLY AG AB DIFFUSE 1:40 (Neg:<1:20)
[2017-04-16 16:39] LABS: ROCKY MTN SPOTTED FEV IGG EIA Positive (Negative)
[2017-04-17 12:37] LABS: E. CHAFFEENSIS IGG TITER Negative (Neg:<1:64)
[2017-04-18 07:50] LABS: E. CHAFFEENSIS IGM TITER Negative (Neg:<1:20); HGE IGM TITER Negative (Neg:<1:20)
[2017-04-20 14:02] LABS: WEST NILE VIRUS RNA PCR RSLT Negative (.)
== END 2017-04-14 13:28 | disposition short-term general hospital (02) | DRG 871 ==
LOC: ER 22:10 → UNDOADMIN 04-11 07:22 → EH 04-11 07:22 → INTOOBSV 04-11 07:26 → EH 04-11 07:26 → 4S 04-11 11:22 → OBSVTOIN 04-11 16:33 → ICU 04-12 11:16
PROVIDERS: ADMIT Family Medicine; ATTEND Family Medicine
PROC: 009U3ZX Drainage of Spinal Canal, Percutaneous Approach, Diagnostic (ICD-10-PCS; principal; 2017-04-12)
PROC: B01BZZZ Fluoroscopy of Spinal Cord (ICD-10-PCS; 2017-04-12)
PROC: 5A09457 Assistance with Respiratory Ventilation, 24-96 Consecutive Hours, Continuous Positive Airway Pressure (ICD-10-PCS; 2017-04-13)
PROC: 02HV33Z Insertion of Infusion Device into Superior Vena Cava, Percutaneous Approach (ICD-10-PCS; 2017-04-13)
PROC: 5A1935Z Respiratory Ventilation, Less than 24 Consecutive Hours (ICD-10-PCS; 2017-04-14)
PROC: 0BH17EZ Insertion of Endotracheal Airway into Trachea, Via Natural or Artificial Opening (ICD-10-PCS; 2017-04-14)
DX: A41.9 Sepsis, unspecified organism (principal); J96.01 Acute respiratory failure with hypoxia; G04.90 Encephalitis and encephalomyelitis, unspecified; J69.0 Pneumonitis due to inhalation of food and vomit; D65 Disseminated intravascular coagulation [defibrination syndrome]; I50.33 Acute on chronic diastolic (congestive) heart failure; G93.41 Metabolic encephalopathy; R27.0 Ataxia, unspecified; R65.20 Severe sepsis without septic shock; Z78.1 Physical restraint status; E66.9 Obesity, unspecified; Z68.32 Body mass index [BMI] 32.0-32.9, adult; F14.10 Cocaine abuse, uncomplicated; E11.9 Type 2 diabetes mellitus without complications; E53.8 Deficiency of other specified B group vitamins; F10.10 Alcohol abuse, uncomplicated; Y90.0 Blood alcohol level of less than 20 mg/100 ml; I11.0 Hypertensive heart disease with heart failure; B18.2 Chronic viral hepatitis C; W18.39XA Other fall on same level, initial encounter; M19.90 Unspecified osteoarthritis, unspecified site; E86.0 Dehydration; Z96.641 Presence of right artificial hip joint; F17.210 Nicotine dependence, cigarettes, uncomplicated; Z79.899 Other long term (current) drug therapy; Z79.4 Long term (current) use of insulin; Z86.73 Personal history of transient ischemic attack (TIA), and cerebral infarction without residual deficits; Z90.49 Acquired absence of other specified parts of digestive tract; Z98.84 Bariatric surgery status; Z84.1 Family history of disorders of kidney and ureter; Z83.3 Family history of diabetes mellitus; Z82.49 Family history of ischemic heart disease and other diseases of the circulatory system
CPT/HCPCS: 31500; 36415; 36600; 62270; 70450; 70498; 70551; 71010; 71250; 72125; 74176; 77001; 78580; 80048; 80053; 80061; 80307; 81001; 82140; 82550; 82553; 82607; 82784; 82803; 82945; 82962; 83036; 83605; 83735; 83880; 84100; 84134; 84157; 84439; 84443; 84484; 85025; 85362; 85379; 85384; 85610; 85730; 86256; 86403; 86592; 86617; 86618; 86663; 86664; 86665; 86701; 86757; 87040; 87070; 87086; 87205; 87210; 87498; 87529; 87798; 89050; 93005; 93010; 93306; 94002; 94660; 99285; A9540; C1751; G0378; J0133; J0295; J0330; J0696; J1630; J1644; J1815; J1885; J1940; J2060; J2543; J2704; J2930; J3010; J3370; J3411; J3420; J3475; J3480; J3490; J7030; J7040; J7050; J7060; P9047; Q9969; S0164

== ENCOUNTER 2018-07-08 21:24 | Emergency (ER) | payer OTHER, MEDICARE, MEDICAID ==
--- NOTE | 2018-07-08 22:44 | RADIOLOGY REPORT (SQ) ---
XR CHEST 2 VIEWS HISTORY: rib pain . COMPARISON: 04/14/2017 FINDINGS/IMPRESSION: Normal cardiomediastinal contours. The pulmonary vasculature is unremarkable. Lungs are clear. No pleural effusion or pneumothorax is seen. No displaced rib fractures are seen.
--- NOTE | 2018-07-08 23:02 | ER Document Report ---
HPI - HPI Pain Level: 5 Notes: Patient presents to emergency department after falling at home. Patient was rearranging chairs on his back porch when he fell landing on the left side of his chest and left arm. Patient denies any shortness of breath. - REPRODUCTIVE Reproductive: DENIES: : Past Medical History - General Information source: Patient - Social History Smoking Status: Current Every Day Smoker Frequency of alcohol use: Heavy Drug Abuse: None Family History: Reviewed & Not Pertinent - Past Medical History Cardiac Medical History: Reports: Hx Hypertension Denies: Hx Congestive Heart Failure, Hx Heart Attack, Hx Hypercholesterolemia Pulmonary Medical History: Reports: Hx Pneumonia Denies: Hx Asthma, Hx Bronchitis, Hx COPD, Hx Tuberculosis Neurological Medical History: Denies: Hx Seizures Endocrine Medical History: Reports: Hx Diabetes Mellitus Type 2 - insulin dependent Renal/ Medical History: Reports: Hx Kidney Stones. Denies: Hx Benign Prostatic Hyperplasia, Hx End Stage Renal Disease GI Medical History: Reports: Hx Hepatitis - C. Denies: Hx Cirrhosis, Hx Gastroesophageal Reflux Disease, Hx Ulcer Musculoskeletal Medical History: Reports Hx Arthritis, Denies Hx Multiple Sclerosis Psychiatric Medical History: Denies: Hx Bipolar Disorder, Hx Depression, Hx Schizophrenia Infectious Medical History: Reports: Hx Hepatitis - C Past Surgical History: Reports: Hx Abdominal Surgery - lap band, Hx Gastric Bypass Surgery - lap band, Hx Orthopedic Surgery - knee, R hip replacement - Immunizations Hx Diphtheria, Pertussis, Tetanus Vaccination: Yes Vertical Provider Document - CONSTITUTIONAL Notes: PHYSICAL EXAMINATION: GENERAL: Well-appearing, well-nourished and in no acute distress. HEAD: Atraumatic, normocephalic. EYES: Pupils equal round and reactive to light, extraocular movements intact, sclera anicteric, conjunctiva are normal. ENT: Nares patent, oropharynx clear without exudates. Moist mucous membranes. NECK: Normal range of motion, supple without lymphadenopathy LUNGS: Breath sounds clear to auscultation bilaterally and equal. No wheezes rales or rhonchi. HEART: Regular rate and rhythm without murmurs ABDOMEN: Soft, nontender, nondistended abdomen. No guarding, no rebound. No masses appreciated. Musculoskeletal: Normal range of motion, no pitting or edema. No cyanosis. Tenderness to palpation over left chest wall. NEUROLOGICAL: Cranial nerves grossly intact. Normal speech, normal gait. Normal sensory, motor exams PSYCH: Normal mood, normal affect. SKIN: Warm, Dry, normal turgor, no rashes or lesions noted. - INFECTION CONTROL TRAVEL OUTSIDE OF THE [place] IN LAST 30 DAYS: No Course - Re-evaluation Re-evalutation: Chest x-ray is negative for any acute findings. No rib fractures noted. Patient's lung sounds are clear and equal bilaterally. Vital signs stable. Patient does report to drinking alcohol prior to coming to the emergency department and has a sober ride with him. Patient will be discharged home at this time. - Vital Signs Vital signs: Temp Pulse Resp BP Pulse Ox 98.2 F 92 20 115/88 H 99 07/08/18 21:33 07/08/18 21:33 07/08/18 21:33 07/08/18 21:33 07/08/18 21:33 Discharge - Discharge Clinical Impression: Fall Condition: Stable Disposition: HOME, SELF-CARE Additional Instructions: Rib Contusion You have been diagnosed as having bruised ribs. It will usually take a few weeks for these injured ribs to heal. You should cough or take a deep breath at least every hour or two to prevent lung complications. You should not engage in any strenuous physical activity until released by your physician. The usual rule is "if it hurts, don' t do it." Return if you develop any of the following: (1) Fever or chills. (2) Persistent cough, coughing up blood, or shortness of breath. (3) Increasing pain. (4) Weakness, lightheadedness, or fainting. Your xray today was negative for any fractures. Please be sure to continue to take deep breaths to keep your lungs fully expanded. Referrals: MARYBETH LINARES, [employer]-C [Primary Care Provider] - Follow up as needed
[2018-07-09] VITALS: BP 122/86
== END 2018-07-08 23:10 | disposition home or self-care (01) ==
LOC: ER 21:24
DX: R07.9 Chest pain, unspecified (principal); M79.602 Pain in left arm; W19.XXXA Unspecified fall, initial encounter; F17.200 Nicotine dependence, unspecified, uncomplicated; I10 Essential (primary) hypertension; E11.9 Type 2 diabetes mellitus without complications; Z79.4 Long term (current) use of insulin
CPT/HCPCS: 71046; 99283

== ENCOUNTER 2019-03-20 15:05 | Emergency (ER) | payer MEDICARE, MEDICAID ==
--- NOTE | 2019-03-20 15:18 | ER Document Report ---
ED General - General Stated Complaint: DIZZINESS/WEAKNESS Time Seen by Provider: 03/20/19 15:17 Primary Care Provider: MARYBETH LINARES FNP-C [Primary Care Provider] - Follow up in 3-5 days Notes: Patient is a 58-year-old male with diabetes mellitus that presents to the emergency department for chief complaint of syncopal episode. Patient states he was outside doing work, had not been eating or drinking all day, and while he was there he got lightheaded, laid down on the ground, and briefly had a syncopal episode. He states that he was out in the heat most of the day, has not eaten much, his blood glucose per EMS was 106, which is low for him, and he usually will get very lightheaded at that point. He denies having any head injury, as he laid down before this occurred. At this time after receiving IV fluids by EMS, he is feeling much better, he was initially hypotensive with a blood pressure of 68 systolic, but after IV fluids and had come up quite well to 129/88. Overall he states he is feeling much better. He denies having any nausea, vomiting, abdominal pain, headache, lightheadedness, dizziness at this time. Denies having any other complaints. Specifically denies any chest pain or shortness of breath. He also reports that he took all of his blood pressure medications this morning as well, again with not drinking any fluids. Past Medical History: Insulin-dependent diabetes mellitus, hypertension Past Surgical History: LAP-BAND surgery, leg surgery, elbow surgery Social History: Admits to smoking cigarettes, and rare alcohol use, denies illicit drug use. Family History: Reviewed and noncontributory for presenting illness Allergies: Reviewed, see documented allergy list. REVIEW OF SYSTEMS: Other than noted above, the 12 point review of systems was reviewed with the patient and were negative, all pertinent findings are included in the HPI. PHYSICAL EXAMINATION: Vital signs reviewed, nursing noted reviewed. GENERAL: Well-appearing, well-nourished and in no acute distress. HEAD: Atraumatic, normocephalic. EYES: Eyes appear normal, extraocular movements intact, sclera anicteric, conjunctiva are normal. ENT: Mild bilateral nasal turbinate injection, with clear nasal discharge, oropharynx clear without exudates. Moist mucous membranes. NECK: Normal range of motion, supple without lymphadenopathy LUNGS: Breath sounds clear to auscultation bilaterally and equal. No wheezes rales or rhonchi. HEART: Regular rate and rhythm without murmurs ABDOMEN: Soft, nontender, normoactive bowel sounds. No rebound, guarding, or rigidity. No masses appreciated. EXTREMITIES: Nontender, good range of motion, no pitting or edema. NEUROLOGICAL: No focal neurological deficits. Moves all extremities spontaneously Motor and sensory grossly intact on exam. PSYCH: Normal mood, normal affect. SKIN: Warm, Dry, normal turgor, no rashes or lesions noted on exposed skin, multiple surgical incisional scars, there are well-healed in the arms and legs. TRAVEL OUTSIDE OF THE [place] IN LAST 30 DAYS: No - Related Data Allergies/Adverse Reactions: No Known Allergies Allergy (Unverified 02/18/12 20:40) Past Medical History - Social History Smoking Status: Current Every Day Smoker Family History: Reviewed & Not Pertinent - Past Medical History Cardiac Medical History: Reports: Hx Hypertension Denies: Hx Congestive Heart Failure, Hx Heart Attack, Hx Hypercholesterolemia Pulmonary Medical History: Reports: Hx Pneumonia Denies: Hx Asthma, Hx Bronchitis, Hx COPD, Hx Tuberculosis Neurological Medical History: Denies: Hx Seizures Endocrine Medical History: Reports: Hx Diabetes Mellitus Type 2 - insulin dependent Renal/ Medical History: Reports: Hx Kidney Stones. Denies: Hx Benign Prostat ic Hyperplasia, Hx End Stage Renal Disease, Hx Peritoneal Dialysis GI Medical History: Reports: Hx Hepatitis - C. Denies: Hx Cirrhosis, Hx Gastroesophageal Reflux Disease, Hx Ulcer Musculoskeletal Medical History: Reports Hx Arthritis, Denies Hx Multiple Sclerosis Psychiatric Medical History: Denies: Hx Bipolar Disorder, Hx Depression, Hx Schizophrenia Infectious Medical History: Reports: Hx Hepatitis - C Past Surgical History: Reports: Hx Abdominal Surgery - lap band, Hx Gastric Bypass Surgery - lap band, Hx Orthopedic Surgery - knee, R hip replacement - Immunizations Hx Diphtheria, Pertussis, Tetanus Vaccination: Yes Physical Exam - Vital signs Vitals: Resp Pulse Ox 18 96 03/20/19 15:15 03/20/19 15:15 Course - Re-evaluation Re-evalutation: Patient seen and examined vital signs reviewed. Laboratory data and/or imaging were ordered as appropriate for the patient's p resenting symptoms and complaint, with consideration of any critical or life threatening conditions that may be associated with their obtained history and exam as noted above. Patient was treated with IV fluids Results were reviewed when available and demonstrated increase in creatinine, likely secondary to dehydration,, versus this patient's new baseline as we do not have labs any more recent than 2017, patient's initial lactic acid was 7.7, this is likely felt to be hemolyzed as was pulled off his IV line, repeat was performed and it was 3.6, again likely secondary to dehydration as the patient did not drink much today, he was out in the heat, and was hypotensive, he fluid responded quite well, I have a low suspicion for any infective cause of the patient's hypotension, he has a mild leukocytosis, likely secondary to stress. His UA did demonstrate some signs of urinary tract infection, and therefore will choose an antibiotic, again though I do not think this is the cause of the ever cornejo's hypotension, as he rebounded so well from small IV fluid bolus, and his maintaining a good blood pressure at this time patient overall is feeling well at this time, and much improved, and I feel that he can be discharged after receiving IV fluids and maintaining a stable blood pressure, over a few hours in the emergency department. The patient was re-evaluated and was stable, much improved Evaluation was most consistent with acute dehydration, mild renal impairment, syncopal episode, UTI will discharge home with antibiotics, and medication for sinusitis including Flonase and Claritin. Results were discussed with the patient at this point, after careful consideration I feel that that patient can be discharged from the emergency department, the patient was educated treatments and reasons to return to the emergency department based on their presumed diagnosis as noted above, they were advised to followup with a primary care physician in 2-3 days. Patient was agreeable to plan of care. *Note is created using voice recognition software and may contain spelling, syntax or grammatical errors. Laboratory 03/20/19 03/20/19 03/20/19 15:38 15:46 15:46 WBC 13.5 H RBC 4.62 Hgb 14.4 Hct 42.7 MCV 92 MCH 31.1 MCHC 33.7 RDW 13.3 Plt Count 248 Seg Neutrophils % 84.6 H Lymphocytes % 11.1 L Monocytes % 3.9 Eosinophils % 0.2 Basophils % 0.2 Absolute Neutrophils 11.4 H Absolute Lymphocytes 1.5 Absolute Monocytes 0.5 Absolute Eosinophils 0.0 Absolute Basophils 0.0 Sodium 142.2 Potassium 4.0 Chloride 107 Carbon Dioxide 20 L Anion Gap 15 BUN 26 H Creatinine 1.30 H Est GFR ( Amer) > 60 Est GFR (Non-Af Amer) 56 L Glucose 135 H POC Glucose 149 H Lactic Acid Calcium 9.5 Total Bilirubin 0.7 Direct Bilirubin 0.3 Neonat Total Bilirubin Not Reportable Neonat Direct Bilirubin Not Reportable Neonat Indirect Bili Not Reportable AST 15 L ALT 18 L Alkaline Phosphatase 59 Troponin I Total Protein 7.7 Albumin 4.1 03/20/19 03/20/19 03/20/19 15:46 15:56 16:55 WBC RBC Hgb Hct MCV MCH MCHC RDW Plt Count Seg Neutrophils % Lymphocytes % Monocytes % Eosinophils % Basophils % Absolute Neutrophils Absolute Lymphocytes Absolute Monocytes Absolute Eosinophils Absolute Basophils Sodium Potassium Chloride Carbon Dioxide Anion Gap BUN Creatinine Est GFR ( Amer) Est GFR (Non-Af Amer) Glucose POC Glucose Lactic Acid 7.7 H 3.6 H Calcium Total Bilirubin Direct Bilirubin Neonat Total Bilirubin Neonat Direct Bilirubin Neonat Indirect Bili AST ALT Alkaline Phosphatase Troponin I < 0.012 Total Protein Albumin Chest X-Ray 03/20/19 15:18 IMPRESSION: NO ACUTE RADIOGRAPHIC FINDING IN THE CHEST. - Vital Signs Vital signs: Temp Pulse Resp BP Pulse Ox 97.6 F 23 H 144/100 H 97 03/20/19 15:47 03/20/19 17:01 03/20/19 17:00 03/20/19 16:59 - Laboratory Result Diagrams: 03/20/19 15:46 03/20/19 15:46 Laboratory results interpreted by me: 03/20/19 03/20/19 03/20/19 15:38 15:46 15:46 WBC 13.5 H Seg Neutrophils % 84.6 H Lymphocytes % 11.1 L Absolute Neutrophils 11.4 H Carbon Dioxide 20 L BUN 26 H Creatinine 1.30 H Est GFR (Non-Af Amer) 56 L Glucose 135 H POC Glucose 149 H Lactic Acid AST 15 L ALT 18 L Urine Protein Urine Blood Ur Leukocyte Esterase 03/20/19 03/20/19 03/20/19 15:56 16:55 17:20 WBC Seg Neutrophils % Lymphocytes % Absolute Neutrophils Carbon Dioxide BUN Creatinine Est GFR (Non-Af Amer) Glucose POC Glucose Lactic Acid 7.7 H 3.6 H AST ALT Urine Protein 30 H Urine Blood LARGE H Ur Leukocyte Esterase SMALL H - EKG Interpretation by Me Additional EKG results interpreted by me: EKG demonstrates sinus rhythm with a ventricular rate of 83 bpm, normal axis, QTC 466 ms, no evidence of acute ischemia in this EKG. Critical Care Note - Critical Care Note Total time excluding time spent on procedures (mins): 35 Comments: Critical care time 35 minutes exclusive from separate billable procedures for a patient requiring complex medical decision making, and high potential for clinical deterioration. The patient was hypotensive in the field, requiring resuscitation, close monitoring and repeat evaluations. Time spent obtaining history from patient or surrogate, discussions with consultants, development of treatment plan with patient or surrogate, evaluation of patient's response to treatment, examination of patient, ordering and performing treatments and interventions, ordering and review of laboratory studies, re-evaluation of patient's condition, ordering and review of radiographic studies and review of old charts Discharge - Discharge Clinical Impression: Dehydration, Transient hypotension, Renal impairment, Sinus congestion Syncope Qualifiers: Syncope type: unspecified Qualified Code(s): R55 - Syncope and collapse UTI (urinary tract infection) Qualifiers: Urinary tract infection type: site unspecified Hematuria presence: with hematuria Qualified Code(s): N39.0 - Urinary tract infection, site not specified Condition: Stable Disposition: HOME, SELF-CARE Instructions: Dehydration ([facility]), Sinusitis ([facility]), Urinary Tract Infection ([facility]) Additional Instructions: Please make sure to maintain your hydration at home, in particular if you are working outside. This is important as your blood pressure can drop particularly if you are taking your blood pressure medications before doing any strenuous activities in the heat. If you are taking insulin, is also important that you eat small meals throughout the day to avoid low sugars. Prescriptions: RX: Cephalexin Monohydrate [Keflex 500 mg Capsule] 500 mg PO TID 7 Days #21 capsule Fluticasone Propionate [Flonase Nasal [place] 50 Mcg/[place] 16 gm] 1 spray NASL Q12 #1 inhaler Loratadine [Claritin 10 mg Tablet] 10 mg PO DAILY #30 tablet Referrals: MARYBETH LINARES FNP-C [Primary Care Provider] - Follow up in 3-5 days
[2019-03-20] MEDS ORDERED: RINGERS SOLUTION,LACTATED 1,000 ML IV ONE ×2 (15:19→16:30)
--- NOTE | 2019-03-20 15:46 | RADIOLOGY REPORT (SQ) ---
EXAM DESCRIPTION: CHEST SINGLE VIEW COMPLETED DATE/TIME: 03/20/2019 3:33 pm REASON FOR STUDY: near syncope, hypotension COMPARISON: 07/08/2018 EXAM PARAMETERS: NUMBER OF VIEWS: One view. TECHNIQUE: Single frontal radiographic view of the chest acquired. RADIATION DOSE: NA LIMITATIONS: None. FINDINGS: LUNGS AND PLEURA: No opacities, masses or pneumothorax. No pleural effusion. MEDIASTINUM AND HILAR STRUCTURES: No masses. Contour normal. HEART AND VASCULAR STRUCTURES: Heart normal in size. Normal vasculature. BONES: No acute findings. HARDWARE: None in the chest. OTHER: No other significant finding. IMPRESSION: NO ACUTE RADIOGRAPHIC FINDING IN THE CHEST. TECHNICAL DOCUMENTATION: JOB ID: [id number] [employer]- All Rights Reserved Reading location - IP/workstation name: [email or web address]
[2019-03-20 16:00] LABS: ABSOLUTE LYMPHOCYTES (AUTO) 1.5 10^3/uL (0.5-4.7); ABSOLUTE MONOCYTES (AUTO) 0.5 10^3/uL (0.1-1.4); ABSOLUTE NEUT (AUTO) 11.4 10^3/uL (1.7-8.2); BASOPHILS % (AUTO) 0.2 % (0-2); EOSINOPHILS % (AUTO) 0.2 % (0-6); HEMATOCRIT 42.7 % (37.9-51.0); HEMOGLOBIN 14.4 g/dL (13.5-17.0); LYMPHOCYTES % (AUTO) 11.1 % (13-45); MEAN CORPUSCULAR HEMOGLOBIN 31.1 pg (27.0-33.4); MEAN CORPUSCULAR HGB CONC 33.7 g/dL (32.0-36.0); MEAN CORPUSCULAR VOLUME 92 fl (80-97); MONOCYTES % (AUTO) 3.9 % (3-13); PLATELET COUNT 248 10^3/uL (150-450); RED BLOOD COUNT 4.62 10^6/uL (4.35-5.55); RED CELL DISTRIBUTION WIDTH 13.3 % (11.5-14.0); SEGMENTED NEUTROPHILS % (AUTO) 84.6 % (42-78); TOTAL CELLS COUNTED % (AUTO) 100 %; WHITE BLOOD COUNT 13.5 10^3/uL (4.0-10.5)
[2019-03-20 16:14] LABS: ALANINE AMINOTRANSFERASE 18 U/L (21-72); ALBUMIN 4.1 g/dL (3.5-5.0); ALKALINE PHOSPHATASE 59 U/L (38-126); ANION GAP 15 (5-19); ASPARTATE AMINO TRANSFERASE 15 U/L (17-59); BILIRUBIN,DIRECT 0.3 mg/dL (0.0-0.4); BILIRUBIN,TOTAL 0.7 mg/dL (0.2-1.3); BLOOD UREA NITROGEN 26 mg/dL (7-20); CALCIUM 9.5 mg/dL (8.4-10.2); CARBON DIOXIDE 20 mmol/L (22-30); CHLORIDE 107 mmol/L (98-107); GLUCOSE 135 mg/dL (75-110); SODIUM 142.2 mmol/L (137-145); TOTAL PROTEIN 7.7 g/dL (6.3-8.2)
[2019-03-20 18:04] LABS: APPEARANCE,URINE CLOUDY; BILIRUBIN,URINE NEGATIVE (NEGATIVE); COLOR,URINE YELLOW; GLUCOSE, URINE NEGATIVE (NEGATIVE); KETONES,URINE NEGATIVE (NEGATIVE); LEUKOCYTE ESTERASE,URINE SMALL (NEGATIVE); NITRITE,URINE NEGATIVE (NEGATIVE); PROTEIN,URINE 30 mg/dL (NEGATIVE); URINE SPECIFIC GRAVITY 1.015; UROBILINOGEN,URINE NEGATIVE mg/dL (<2.0)
[2019-03-20] MEDS ORDERED: CEFTRIAXONE 1 GM/D5W RTU 1 GM/50 ML RTUPB IV ONE (18:24)
--- NOTE | 2019-03-20 18:57 | EKG REPORT ---
SEVERITY:- NORMAL ECG - SINUS RHYTHM : Confirmed by: Abdifatah Barragan MD 20-Mar-2019 18:56:57
[2019-03-20 19:08] VITALS: BP 134/78
== END 2019-03-20 19:05 | disposition home or self-care (01) ==
LOC: ER 15:05
DX: E86.0 Dehydration (principal); I95.9 Hypotension, unspecified; R55 Syncope and collapse; N39.0 Urinary tract infection, site not specified; R31.9 Hematuria, unspecified; R09.81 Nasal congestion; N28.9 Disorder of kidney and ureter, unspecified; E11.9 Type 2 diabetes mellitus without complications; Z79.4 Long term (current) use of insulin; I10 Essential (primary) hypertension; Z79.899 Other long term (current) drug therapy; Z98.84 Bariatric surgery status; F17.210 Nicotine dependence, cigarettes, uncomplicated
CPT/HCPCS: 93005; 99291; 36415; 87086; 82962; 83605 ×2; 85025; 80053; 81001; 84484; 71045; 93010; J7120; J0696

== ENCOUNTER 2020-06-10 15:02 | Emergency (ER) | payer MEDICARE, MEDICAID ==
[2020-06-10] MEDS ORDERED: DIPH/PERTUSS(ACELL)/TETANUS VAC/PF 0.5 ML SYR (>=10YO) IM ONE (15:28)
[2020-06-10] MEDS ORDERED: FENTANYL CITRATE INJ/PF 100 MCG/2 ML AMPUL IV ONE (15:31)
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
[2020-06-10 17:26] LABS: ABSOLUTE BASOPHILS # (AUTO) 0.1 10^3/uL (0.0-0.2); ABSOLUTE EOSINOPHILS # (AUTO) 0.1 10^3/uL (0.0-0.6); ABSOLUTE LYMPHOCYTES (AUTO) 1.8 10^3/uL (0.5-4.7); ABSOLUTE NEUT (AUTO) 11.4 10^3/uL (1.7-8.2); BASOPHILS % (AUTO) 0.3 % (0-2); EOSINOPHILS % (AUTO) 0.8 % (0-6); HEMATOCRIT 39.4 % (37.9-51.0); HEMOGLOBIN 13.2 g/dL (13.5-17.0); LYMPHOCYTES % (AUTO) 12.8 % (13-45); MEAN CORPUSCULAR HEMOGLOBIN 31.1 pg (27.0-33.4); MEAN CORPUSCULAR HGB CONC 33.5 g/dL (32.0-36.0); MEAN CORPUSCULAR VOLUME 93 fl (80-97); MONOCYTES % (AUTO) 7.1 % (3-13); PLATELET COUNT 296 10^3/uL (150-450); RED BLOOD COUNT 4.23 10^6/uL (4.35-5.55); RED CELL DISTRIBUTION WIDTH 13.8 % (11.5-14.0); TOTAL CELLS COUNTED % (AUTO) 100 %; WHITE BLOOD COUNT 14.4 10^3/uL (4.0-10.5)
[2020-06-10 17:28] LABS: APPEARANCE,URINE CLEAR; BILIRUBIN,URINE NEGATIVE (NEGATIVE); COLOR,URINE YELLOW; GLUCOSE, URINE NEGATIVE (NEGATIVE); INTERNATIONAL RATION (INR) 0.98; KETONES,URINE NEGATIVE (NEGATIVE); PROTEIN,URINE 100 mg/dL (NEGATIVE); PROTHROMBIN TIME 13.2 SEC (11.4-15.4); URINE SPECIFIC GRAVITY 1.021
[2020-06-10 17:29] LABS: PARTIAL THROMBOPLASTIN TIME 25.4 SEC (23.5-35.8)
[2020-06-10 17:41] LABS: ALBUMIN 4.6 g/dL (3.5-5.0); ALKALINE PHOSPHATASE 62 U/L (38-126); ANION GAP 9 (5-19); ASPARTATE AMINO TRANSFERASE 24 U/L (17-59); BILIRUBIN,DIRECT 0.1 mg/dL (0.0-0.4); BILIRUBIN,TOTAL 0.8 mg/dL (0.2-1.3); BLOOD UREA NITROGEN 29 mg/dL (7-20); CALCIUM 9.6 mg/dL (8.4-10.2); CARBON DIOXIDE 22 mmol/L (22-30); CHLORIDE 104 mmol/L (98-107); GLUCOSE 125 mg/dL (75-110); POTASSIUM 4.1 mmol/L (3.6-5.0); TOTAL PROTEIN 8.1 g/dL (6.3-8.2)
[2020-06-10 17:42] LABS: ALCOHOL < 10 mg/dL (NONE DETECTED)
[2020-06-10 17:46] LABS: URINE AMPHETAMINES SCREEN NEGATIVE; URINE BARBITURATES SCREEN NEGATIVE; URINE BENZODIAZEPINES SCREEN NEGATIVE; URINE COCAINE SCREEN UNCONFIRMED POSITIVE; URINE MARIJUANA (THC) SCREEN NEGATIVE; URINE METHADONE SCREEN NEGATIVE; URINE PHENCYCLIDINE SCREEN NEGATIVE
[2020-06-10] MEDS ORDERED: OXYCODONE-ACETAMINOPHEN 5-325 MG TABLET PO ONE (17:47)
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
[2020-06-10 19:23] VITALS: BP 136/91
== END 2020-06-10 19:32 | disposition home or self-care (01) ==
LOC: ER 15:02
DX: S06.0X0A Concussion without loss of consciousness, initial encounter (principal); S60.512A Abrasion of left hand, initial encounter; M25.551 Pain in right hip; H11.32 Conjunctival hemorrhage, left eye; R11.2 Nausea with vomiting, unspecified; Y00.XXXA Assault by blunt object, initial encounter; Y92.009 Unspecified place in unspecified non-institutional (private) residence as the place of occurrence of the external cause; Z23 Encounter for immunization; F17.200 Nicotine dependence, unspecified, uncomplicated; Z86.19 Personal history of other infectious and parasitic diseases
CPT/HCPCS: 99284; 90471; 96374; 36415; 80307 ×2; 85025; 85610; 85730; 80053; 81001; 71045; 73130; 73502; 73060; 70450; 70486; 72125; 90715; J3010; A9270